=== PATIENT | male | born 1945 | race Caucasian/White ===

== ENCOUNTER 2020-09-01 08:49 | Outpatient (REF) | payer MEDICARE, SELFPAY ==
[2020-09-01 13:04] LABS: Estimated Average Glucose 128 mg/dL; Hemoglobin A1c % 6.1 %
== END 2020-09-01 08:50 | disposition home or self-care (01) ==
LOC: HO.MANLR 08:49
PROVIDERS: PCP Internal Medicine; Visit Provider Internal Medicine
DX: R73.01 Impaired fasting glucose (principal)
CPT/HCPCS: 36415; 83036

== ENCOUNTER 2020-12-22 07:40 | Outpatient (REF) | payer MEDICARE, SELFPAY ==
[2020-12-22 11:24] LABS: Estimated Average Glucose 128 mg/dL; Hemoglobin A1c % 6.1 %
[2020-12-22 11:57] LABS: Alanine Aminotransferase 68 U/L (0-40); Albumin Level 4.1 g/dL (3.5-5.0); Alkaline Phosphatase 54 U/L (39-117); Anion Gap 12 (12-20); Aspartate Amino Transferase 40 U/L (5-37); Bilirubin Total 0.5 mg/dL (0.0-1.0); Blood Urea Nitrogen 18 mg/dL (9-16); Calcium 9.1 mg/dL (8.4-10.2); Carbon Dioxide 30 mmol/L (22-29); Chloride 105 mmol/L (96-108); Cholesterol 192 mg/dL; Estimated Glomerular Filt Rate > 60; Glucose Fasting 154 mg/dL (60-99); HDL Cholesterol 42 mg/dL; LDL Cholesterol Calculated 115 mg/dl; Potassium 4.7 mmol/L (3.3-5.1); Sodium 142 mmol/L (135-145); Total Protein 6.1 g/dL (6.5-8.0); Triglycerides 178 mg/dL
[2020-12-22 12:15] LABS: Prostate Specific Antigen < 0.05 ng/mL (<0.05-4.0)
[2020-12-22 18:09] LABS: Hematocrit 46.3 % (42-52); Hemoglobin 14.8 g/dl (14.0-18.0); Mean Corpuscular Volume 100.2 fL (80-98); Mean Platelet Volume 11.4 fL (9.4-12.4); Platelet Count 219 X10*3/uL (160-400); Red Blood Count 4.62 X10*6/uL (4.60-5.80); Red Cell Distribution Width 12.7 % (11.0-16.0); White Blood Count 7.3 X10*3/uL (4.8-10.8)
== END 2020-12-22 07:41 | disposition home or self-care (01) ==
LOC: HO.MANLDS 07:40
PROVIDERS: PCP Internal Medicine; Visit Provider Internal Medicine
DX: Z12.5 Encounter for screening for malignant neoplasm of prostate (principal); E78.00 Pure hypercholesterolemia, unspecified
CPT/HCPCS: 36415; 80053; 80061; 83036; 84153; 85027

== ENCOUNTER 2021-03-23 07:33 | Outpatient (REF) | payer MEDICARE, SELFPAY ==
[2021-03-23 11:31] LABS: Estimated Average Glucose 137 mg/dL; Hemoglobin A1c % 6.4 %
== END 2021-03-23 07:34 | disposition home or self-care (01) ==
LOC: HO.MANLDS 07:33
PROVIDERS: PCP Internal Medicine; Visit Provider Internal Medicine
DX: R73.01 Impaired fasting glucose (principal)
CPT/HCPCS: 36415; 83036

== ENCOUNTER 2021-06-23 08:43 | Outpatient (REF) | payer MEDICARE, SELFPAY ==
[2021-06-23 11:06] LABS: Hematocrit 47.9 % (42-52); Hemoglobin 15.2 g/dl (14.0-18.0); Mean Corpuscular HGB Conc 31.7 g/dl (31.0-36.0); Mean Corpuscular Volume 97.6 fL (80-98); Mean Platelet Volume 11.4 fL (9.4-12.4); Platelet Count 224 X10*3/uL (160-400); Red Blood Count 4.91 X10*6/uL (4.60-5.80); Red Cell Distribution Width 13.2 % (11.0-16.0); White Blood Count 8.9 X10*3/uL (4.8-10.8)
[2021-06-23 11:15] LABS: Estimated Average Glucose 131 mg/dL; Hemoglobin A1c % 6.2 %
[2021-06-23 11:30] LABS: Alanine Aminotransferase 30 U/L (0-40); Albumin Level 4.3 g/dL (3.5-5.0); Alkaline Phosphatase 51 U/L (39-117); Anion Gap 11 (12-20); Aspartate Amino Transferase 27 U/L (5-37); Bilirubin Total 0.6 mg/dL (0.0-1.0); Blood Urea Nitrogen 15 mg/dL (9-16); Calcium 9.6 mg/dL (8.4-10.2); Carbon Dioxide 33 mmol/L (22-29); Chloride 104 mmol/L (96-108); Cholesterol 155 mg/dL; Estimated Glomerular Filt Rate > 60; Glucose Fasting 133 mg/dL (60-99); HDL Cholesterol 46 mg/dL; LDL Cholesterol Calculated 91 mg/dl; Potassium 4.9 mmol/L (3.3-5.1); Sodium 143 mmol/L (135-145); Total Protein 6.5 g/dL (6.5-8.0); Triglycerides 93 mg/dL
[2021-06-23 11:31] LABS: Creatinine Urine 97.11 mg/dL; Microalbum/Creatinine Ratio Ur 14.4 ug/mg cr
[2021-06-23 11:57] LABS: Prostate Specific Antigen < 0.05 ng/mL (<0.05-4.0)
== END 2021-06-23 08:44 | disposition home or self-care (01) ==
LOC: HO.MANLDS 08:43
PROVIDERS: PCP Internal Medicine; Visit Provider Internal Medicine
DX: E78.00 Pure hypercholesterolemia, unspecified (principal); R35.1 Nocturia; R73.01 Impaired fasting glucose
CPT/HCPCS: 36415; 80053; 80061; 82043; 83036; 84153; 85027

== ENCOUNTER 2021-09-22 07:34 | Outpatient (REF) | payer MEDICARE, SELFPAY ==
[2021-09-22 11:54] LABS: Estimated Average Glucose 140 mg/dL; Hemoglobin A1c % 6.5 %
== END 2021-09-22 07:35 | disposition home or self-care (01) ==
LOC: HO.MANLDS 07:34
PROVIDERS: PCP Internal Medicine; Visit Provider Internal Medicine
DX: R73.01 Impaired fasting glucose (principal)
CPT/HCPCS: 36415; 83036

== ENCOUNTER 2021-12-22 08:27 | Outpatient (REF) | payer MEDICARE, SELFPAY ==
[2021-12-22 11:42] LABS: Estimated Average Glucose 134 mg/dL; Hemoglobin A1c % 6.3 %
== END 2021-12-22 08:28 | disposition home or self-care (01) ==
LOC: HO.MANLDS 08:27
PROVIDERS: PCP Internal Medicine; Visit Provider Internal Medicine
DX: R73.01 Impaired fasting glucose (principal); I10 Essential (primary) hypertension; E78.00 Pure hypercholesterolemia, unspecified; Z12.5 Encounter for screening for malignant neoplasm of prostate
CPT/HCPCS: 36415; 83036

== ENCOUNTER 2022-03-23 07:32 | Outpatient (REF) | payer MEDICARE, SELFPAY ==
[2022-03-23 10:57] LABS: MANUAL DIFF FLAG NO
[2022-03-23 11:05] LABS: Basophils Absolute Auto 0.1 X10*3/uL (0.0-0.2); Basophils Percent Auto 0.8 % (0-2); Eosinophils Absolute Auto 0.2 X10*3/uL (0.0-0.4); Eosinophils Percent Auto 2.7 % (0-4); Hematocrit 45.7 % (42.0-52.0); Hemoglobin 14.9 g/dl (14.0-18.0); Imm Gran Abs Auto 0.02 X10*3/uL (0.00-0.03); Imm Gran Pct Auto 0.3 % (0.0-0.4); Lymphocytes Absolute Auto 3.1 X10*3/uL (1.2-4.9); Lymphocytes Percent Auto 39.8 % (20-40); Mean Corpuscular HGB Conc 32.6 g/dl (31.0-36.0); Mean Corpuscular Hemoglobin 31.8 pg (27.0-33.0); Mean Corpuscular Volume 97.6 fL (80.0-98.0); Mean Platelet Volume 11.4 fL (9.4-12.4); Monocytes Absolute Auto 0.6 X10*3/uL (0.1-1.2); Monocytes Percent Auto 7.9 % (2-11); Neutrophils Absolute Auto 3.8 x10*3/uL (2.0-8.3); Neutrophils Percent Auto 48.5 % (45-73); Platelet Count 212 X10*3/uL (160-400); Red Blood Count 4.68 X10*6/uL (4.60-5.80); Red Cell Distribution Width 12.9 % (11.0-16.0); White Blood Count 7.8 X10*3/uL (4.8-10.8)
[2022-03-23 11:34] LABS: Alanine Aminotransferase 26 U/L (0-40); Albumin Level 4.2 g/dL (3.5-5.0); Alkaline Phosphatase 49 U/L (39-117); Anion Gap 11 (12-20); Aspartate Amino Transferase 23 U/L (5-37); Bilirubin Total 0.4 mg/dL (0.0-1.0); Blood Urea Nitrogen 16 mg/dL (9-16); Calcium 8.8 mg/dL (8.4-10.2); Carbon Dioxide 30 mmol/L (22-29); Chloride 108 mmol/L (96-108); Estimated Glomerular Filt Rate > 60; Glucose Random 119 mg/dL (60-115); Potassium 4.4 mmol/L (3.3-5.1); Sodium 145 mmol/L (135-145); Total Protein 6.3 g/dL (6.5-8.0)
[2022-03-23 11:39] LABS: Creatinine Urine 63.94 mg/dL; Microalbumin Urine < 5.0 mg/L
[2022-03-23 11:45] LABS: Estimated Average Glucose 128 mg/dL; Hemoglobin A1c % 6.1 %
[2022-03-23 11:50] LABS: Prostate Specific Antigen < 0.05 ng/mL (<0.05-4.0)
== END 2022-03-23 07:33 | disposition home or self-care (01) ==
LOC: HO.MANLDS 07:32
PROVIDERS: Visit Provider Internal Medicine
DX: Z12.5 Encounter for screening for malignant neoplasm of prostate (principal); R73.01 Impaired fasting glucose
CPT/HCPCS: 36415; 80053; 82043; 83036; 84153; 85025

== ENCOUNTER 2022-06-23 09:56 | Outpatient (REF) | payer MEDICARE, SELFPAY ==
[2022-06-23 11:14] LABS: Estimated Average Glucose 128 mg/dL; Hemoglobin A1c % 6.1 %
== END 2022-06-23 09:57 | disposition home or self-care (01) ==
LOC: HO.MANLDS 09:56
PROVIDERS: Visit Provider Internal Medicine
DX: R73.01 Impaired fasting glucose (principal)
CPT/HCPCS: 36415; 83036

== ENCOUNTER 2022-12-22 07:41 | Outpatient (REF) | payer MEDICARE, SELFPAY ==
[2022-12-22 11:54] LABS: Estimated Average Glucose 126 mg/dL
== END 2022-12-22 07:42 | disposition home or self-care (01) ==
LOC: HO.MANLDS 07:41
PROVIDERS: Visit Provider Internal Medicine
DX: R73.01 Impaired fasting glucose (principal)
CPT/HCPCS: 36415; 83036

== ENCOUNTER 2023-03-22 07:30 | Outpatient (REF) | payer MEDICARE, SELFPAY ==
[2023-03-22 13:41] LABS: Estimated Average Glucose 117 mg/dL; Hemoglobin A1c % 5.7 %
[2023-03-22 14:14] LABS: Creatinine Urine 54.39 mg/dL; Microalbumin Urine < 5.0 mg/L
[2023-03-22 14:23] LABS: Alanine Aminotransferase 26 U/L (0-40); Albumin Level 4.3 g/dL (3.5-5.0); Alkaline Phosphatase 51 U/L (39-117); Anion Gap 9 (12-20); Aspartate Amino Transferase 25 U/L (5-37); Bilirubin Total 0.3 mg/dL (0.0-1.0); Blood Urea Nitrogen 20 mg/dL (9-16); Calcium 9.2 mg/dL (8.4-10.2); Carbon Dioxide 33 mmol/L (22-29); Chloride 105 mmol/L (96-108); Cholesterol 177 mg/dL; Estimated Glomerular Filt Rate > 60; Glucose Random 116 mg/dL (60-115); HDL Cholesterol 50 mg/dL; LDL Cholesterol Calculated 98 mg/dl; Potassium 4.4 mmol/L (3.3-5.1); Sodium 143 mmol/L (135-145); Total Protein 6.7 g/dL (6.5-8.0); Triglycerides 147 mg/dL
[2023-03-22 14:50] LABS: Prostate Specific Antigen < 0.10 ng/mL (<0.05-4.0)
== END 2023-03-22 07:31 | disposition home or self-care (01) ==
LOC: HO.MANLDS 07:30
PROVIDERS: Visit Provider Internal Medicine
DX: Z12.5 Encounter for screening for malignant neoplasm of prostate (principal); I25.9 Chronic ischemic heart disease, unspecified; R73.01 Impaired fasting glucose
CPT/HCPCS: 36415; 80053; 80061; 82043; 83036; 84153

== ENCOUNTER 2023-06-24 07:38 | Outpatient (REF) | payer MEDICARE, SELFPAY ==
[2023-06-24 13:28] LABS: Estimated Average Glucose 126 mg/dL
== END 2023-06-24 07:39 | disposition home or self-care (01) ==
LOC: HO.MANLDS 07:38
PROVIDERS: Visit Provider Internal Medicine
DX: R73.01 Impaired fasting glucose (principal)
CPT/HCPCS: 36415; 83036

== ENCOUNTER 2023-08-26 07:26 | Outpatient (REF) | payer MEDICARE, SELFPAY ==
[2023-08-26 13:26] LABS: MANUAL DIFF FLAG NO
[2023-08-26 13:43] LABS: Basophils Absolute Auto 0.1 X10*3/uL (0.0-0.2); Basophils Percent Auto 0.8 % (0-2); Eosinophils Absolute Auto 0.1 X10*3/uL (0.0-0.4); Eosinophils Percent Auto 1.2 % (0-4); Hematocrit 42.8 % (42.0-52.0); Hemoglobin 13.5 g/dl (14.0-18.0); Imm Gran Abs Auto 0.03 X10*3/uL (0.00-0.03); Imm Gran Pct Auto 0.5 % (0.0-0.4); Lymphocytes Absolute Auto 2.9 X10*3/uL (1.2-4.9); Lymphocytes Percent Auto 45.1 % (20-40); Mean Corpuscular HGB Conc 31.5 g/dl (31.0-36.0); Mean Corpuscular Hemoglobin 31.5 pg (27.0-33.0); Mean Corpuscular Volume 99.8 fL (80.0-98.0); Mean Platelet Volume 10.1 fL (9.4-12.4); Monocytes Absolute Auto 0.6 X10*3/uL (0.1-1.2); Monocytes Percent Auto 9.7 % (2-11); Neutrophils Absolute Auto 2.8 x10*3/uL (2.0-8.3); Neutrophils Percent Auto 42.7 % (45-73); Platelet Count 355 X10*3/uL (160-400); Red Blood Count 4.29 X10*6/uL (4.60-5.80); Red Cell Distribution Width 13.7 % (11.0-16.0); White Blood Count 6.5 X10*3/uL (4.8-10.8)
[2023-08-26 13:54] LABS: Estimated Average Glucose 131 mg/dL; Hemoglobin A1c % 6.2 % (<6.0)
[2023-08-26 14:11] LABS: Alanine Aminotransferase 38 U/L (0-40); Albumin Level 3.4 g/dL (3.5-5.0); Alkaline Phosphatase 43 U/L (39-117); Anion Gap 11 (12-20); Aspartate Amino Transferase 42 U/L (5-37); Bilirubin Total 0.5 mg/dL (0.0-1.0); Blood Urea Nitrogen 13 mg/dL (9-16); Calcium 8.6 mg/dL (8.4-10.2); Carbon Dioxide 28 mmol/L (22-29); Chloride 107 mmol/L (96-108); Cholesterol 139 mg/dL (<200); Estimated Glomerular Filt Rate > 60; Glucose Random 106 mg/dL (60-115); HDL Cholesterol 37 mg/dL (>40); LDL Cholesterol Calculated 78 mg/dL (<100); Potassium 4.3 mmol/L (3.3-5.1); Sodium 142 mmol/L (135-145); Total Protein 6.1 g/dL (6.5-8.0); Triglycerides 122 mg/dL (<150)
[2023-08-26 14:16] LABS: Thyroid Stimulating Hormone 2.79 uIU/mL (0.32-4.0)
== END 2023-08-26 07:27 | disposition home or self-care (01) ==
LOC: HO.MANLDS 07:26
PROVIDERS: Visit Provider Internal Medicine
DX: I25.9 Chronic ischemic heart disease, unspecified (principal)
CPT/HCPCS: 36415; 80053; 80061; 83036; 84443; 85025

== ENCOUNTER 2023-11-23 09:09 | Outpatient (REF) | payer MEDICARE, SELFPAY ==
[2023-11-23 14:04] LABS: Estimated Average Glucose 128 mg/dL; Hemoglobin A1c % 6.1 % (<6.0)
== END 2023-11-23 09:10 | disposition home or self-care (01) ==
LOC: HO.MANLDS 09:09
PROVIDERS: Visit Provider Internal Medicine
DX: R73.01 Impaired fasting glucose (principal)
CPT/HCPCS: 36415; 83036

== ENCOUNTER 2024-02-24 08:31 | Outpatient (REF) | payer MEDICARE, SELFPAY ==
[2024-02-24 14:00] LABS: Estimated Average Glucose 131 mg/dL; Hemoglobin A1c % 6.2 % (<6.0)
== END 2024-02-24 08:32 | disposition home or self-care (01) ==
LOC: HO.MANLDS 08:31
PROVIDERS: Visit Provider Internal Medicine
DX: R73.01 Impaired fasting glucose (principal)
CPT/HCPCS: 36415; 83036

== ENCOUNTER 2024-05-28 10:25 | Outpatient (REF) | payer MEDICARE, SELFPAY ==
[2024-05-28 13:40] LABS: Estimated Average Glucose 126 mg/dL; Total Hemoglobin (HGBA1C) 3833.4525 umol/L
== END 2024-05-28 10:26 | disposition home or self-care (01) ==
LOC: HO.MANLDS 10:25
PROVIDERS: Visit Provider Internal Medicine
DX: R73.01 Impaired fasting glucose (principal)
CPT/HCPCS: 36415; 83036

== ENCOUNTER 2024-11-21 07:31 | Outpatient (REF) | payer MEDICARE, SELFPAY ==
[2024-11-21 13:42] LABS: Estimated Average Glucose 137 mg/dL; Hemoglobin A1c % 6.4 % (<6.0); Total Hemoglobin (HGBA1C) 3920.5602 umol/L
== END 2024-11-21 07:32 | disposition home or self-care (01) ==
LOC: HO.MANLDS 07:31
PROVIDERS: Visit Provider Internal Medicine
DX: R73.01 Impaired fasting glucose (principal)
CPT/HCPCS: 36415; 83036

== ENCOUNTER 2025-02-26 07:30 | Outpatient (REF) | payer MEDICARE, SELFPAY ==
--- OUTSIDE RECORDS SUMMARY | 2025-02-26 07:32 | XMS_ITS | Data Portability ---
Author Organization [facility], Telehealth Patient Home Address [address] [place] [address] Assessment Encounter Date Assessment Date Assessment LastModified by Organization Details LastModified Time 01/17/2024 01/17/2024 [id number] [place] [id number] (DEPARTMENT SALES MANAGER) [facility] MODERATE MUST MEET 2 OUT OF 3 ELEMENTS: PROBLEMS, DATA OR RISK ELEMENT 1: PROBLEMS ADDRESSED 1 OR MORE CHRONIC ILLNESS WITH EXACERBATION OR 2 OR MORE STABLE CHRONIC ILLNESSES OR 1 UNDIAGNOSED NEW PROBLEM OR 1 ACUTE ILLNESS W/SYMPTOMS OR 1 ACUTE COMPLICATED INJURY ELEMENT 2: DATA MUST MEET 1 OF 3 CATEGORIES CATEGORY 1: REVIEW OF PRIOR EXTERNAL NOTES, REVIEW OF RESULTS, ORDERING OF EACH TEST, ASSESSMENT REQUIRING INDEPENDENT HISTORIAN OR CATEGORY 2: INDEPENDENT INTERPRETATION OF TESTS BY ANOTHER PHYSICIAN OR SPECIALIST OR CATEGORY 3: DISCUSSION OF MGT OR TEST INTERPRETATION W/EXTERNAL PHYSICIAN OR SPECIALIST ELEMENT 3: RISK RISK OF COMPLICATIONS AND/OR MORBIDITY OR MORTALITY OF PATIENT MANAGEMENT PROVIDER MUST THOROUGHLY DOCUMENT EACH ELEMENT THAT IS COVERED Not available 01/17/2024 15:39:57 03/21/2024 03/21/2024 [id number] [place] [id number] (DEPARTMENT SALES MANAGER) [facility] MODERATE MUST MEET 2 OUT OF 3 ELEMENTS: PROBLEMS, DATA OR RISK ELEMENT 1: PROBLEMS ADDRESSED 1 OR MORE CHRONIC ILLNESS WITH EXACERBATION OR 2 OR MORE STABLE CHRONIC ILLNESSES OR 1 UNDIAGNOSED NEW PROBLEM OR 1 ACUTE ILLNESS W/SYMPTOMS OR 1 ACUTE COMPLICATED INJURY ELEMENT 2: DATA MUST MEET 1 OF 3 CATEGORIES CATEGORY 1: REVIEW OF PRIOR EXTERNAL NOTES, REVIEW OF RESULTS, ORDERING OF EACH TEST, ASSESSMENT REQUIRING INDEPENDENT HISTORIAN OR CATEGORY 2: INDEPENDENT INTERPRETATION OF TESTS BY ANOTHER PHYSICIAN OR SPECIALIST OR CATEGORY 3: DISCUSSION OF MGT OR TEST INTERPRETATION W/EXTERNAL PHYSICIAN OR SPECIALIST ELEMENT 3: RISK RISK OF COMPLICATIONS AND/OR MORBIDITY OR MORTALITY OF PATIENT MANAGEMENT PROVIDER MUST THOROUGHLY DOCUMENT EACH ELEMENT THAT IS COVERED Not available 03/21/2024 14:01:11 09/21/2024 09/21/2024 [id number] [place] [id number] (DEPARTMENT SALES MANAGER) MDM HIGH MUST MEET 2 OUT OF 3 ELEMENTS: PROBLEMS, DATA OR RISK ELEMENT 1: PROBLEMS 1 OR MORE CHRONIC ILLNESS W/SEVERE EXACERBATION, PROGRESSION MAY REQUIRE HOSPITAL LEVEL CARE OR 1 ACUTE OR CHRONIC ILLNESS OR INJURY THAT POSES A THREAT TO LIFE OR BODILY FUNCTION ELEMENT 2: DATA: MUST MEET 2 OF 3 CATEGORIES CATEGORY 1 REVIEW OF PRIOR EXTERNAL NOTES REVIEW OF THE RESULTS ORDERING OF EACH TEST ASSESSMENT REQUIRING INDEPENDENT HISTORIAN(S) CATEGORY 2: INDEPENDENT INTERPRETATION OF TESTS BY ANOTHER PROVIDER/SPECIALI ST CATEGORY 3: DISCUSSION OF MGT OR TEST INTERPRETATION W/EXTERNAL PHYSICIAN/SPECIAL IST ELEMENT 3: RISK HIGH RISK OF MORBIDITY FROM ADDITIONAL DIAGNOSTIC TESTING OR TREATMENT PROVIDER MUST THOROUGHLY DOCUMENT EACH ELEMENT THAT IS COVERED Not available 09/21/2024 11:02:44 Plan of Treatment Reminders Order Date Submit Date Provider Last Modified By Organization Details Last Modified Time Details Appointments FOLLOW UP 15 2024 02:00P M DR REYES Not available Not available Not available Lab lipid panel, blood 2024 025 [facility], [address] [place] [address], [id number], 12/03/2024 15:53:12 CMP, serum or plasma 2024 025 [facility], [address] [place] [address], [id number], 12/03/2024 15:53:12 PSA, serum or plasma 2024 025 [facility], [address] [place] [address], [id number], 12/03/2024 15:53:12 CBC 2024 025 [facility], [address] [place] [address], [id number], 12/03/2024 15:53:12 hemoglobi n A1c, QN, blood 2024 025 [facility], [address] [place] [address], [id number], 11/22/2024 12:48:27 hemoglobi n A1c, QN, blood 2024 025 [facility], [address] [place] [address], [id number], 12/03/2024 15:42:37 CMP, serum or plasma 2023 024 [facility], [address] [place] [address], [id number], 06/26/2024 14:04:28 CBC w/ auto diff 2023 024 [facility], [address] [place] [address], [id number], 08/24/2024 12:37:15 PSA, serum or plasma 2023 024 [facility], [address] [place] [address], [id number], 08/24/2024 13:15:27 lipid panel, blood 2023 024 [facility], [address] [place] [address], [id number], 08/24/2024 13:02:27 Referral orthopedi c surgeon referral 2023 024 sb Sanchez MD, [address] [place] [address], [id number], 01/20/2024 08:21:40 Procedures None recorded. Surgeries None recorded. Imaging US, echocardi ogram, transthor acic, complete, w/ color flow 2024 [facility]25 [facility], [address] [place], [address], 10/05/2024 09:02:24 Medication Orders losartan 25 mg tablet 2024 025 [id number], [address] [place], [address], 12/03/2024 15:51:57 Patient TargetsNo targets recorded. Patient Instructions Encounter Date Encounter Id Patient Instructions Last Modified By Organization Details Last Modified Time 03/21/2024 [id number] prediabetes: car e instructions Not available 03/21/2024 14:03:15 thoracic aortic aneurysm: care instructions Not available 03/21/2024 14:03:15 insomnia: care instructions Not available 03/21/2024 14:08:15 high blood pressure: care instructions Not available 03/21/2024 14:03:16 learning about high blood pressure Not available 03/21/2024 14:03:15 06/26/2024 [id number] prediabetes: car e instructions Not available 06/26/2024 14:03:10 lumbar spinal stenosis: care instructions Not available 06/26/2024 14:03:10 insomnia: care instructions Not available 06/26/2024 14:03:10 09/21/2024 [id number] prediabetes: car e instructions Not available 09/21/2024 11:07:30 thoracic aortic aneurysm: care instructions Not available 09/21/2024 11:01:57 Reason for Referral Orthopedic Surgeon Referral for Pain of right hip joint Referring Physician: Lincoln Reyes, Internal Medicine, Encounter Date: 01/17/2024 Results Created Date Observation Date Name Description Value Unit Range Abnormal Flag Note LastModifiedBy Organization Detail LastModifiedTime 10/10/19 25 10/09/2024 cardi ovasc ular funct ion evalu ation w/ tilt table , aric nuous ECG and inter mitte nt blood press ure monit oring No observ ation record ed. [facility] [address], [place], [address], 12/03/2024 15:42:37 11/14/19 25 11/13/2024 US, echoc ardio gram, trans thora cic, compl ete, w/ color flow No observ ation record ed. [facility] [address] [facility], [place], [address], 12/03/2024 15:42:37 Result Notes None recorded. Problems Name Problem SNOMED Code Status Onset Date Resolution Date Notes Provider Name and Address Organization Details Recorded Time Axillary hidraden itis suppurat francisca 222525717 Active 2018 [facility] 11:05:36 Radical prostate ctomy Active 2020 Lincoln Reyes, [address] [place] [address], [phone], [facility] 10:03:22 Myocardi al infarcti on 07312430 Completed 202004/14/2021 Lincoln Reyes DO [address] [place] [address], [phone], [facility] 10:05:23 Steatoti c liver disease 497235891 Active 2022 [facility] 11:05:36 Nodule of lung 898966756 Active 2022 [facility] 5 11:05:36 Divertic ulosis of colon 302526452 Active 2022 Salud wadsworth [facility] 5 11:05:36 Aneurysm of thoracic aorta 506084043 Active 2022 [facility] 11:05:36 Ischemic heart disease 906364440 Completed 202212/03/2024 Lincoln Reyes DO [address] [place] [address], [phone], [facility] 5 15:49:55 Diarrhea 32605200 Active 2022 [facility] 11:05:43 Left foot drop 53286274888 9105 Active 2022 [facility] 5 11:05:36 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 [facility] 11:05:36 Spinal stenosis of lumbar region 19893230 Active 2023 [facility] 5 11:05:36 Acute sciatica 523952467 Active 2023 [facility] 5 11:05:43 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 2237986575 Active 2023 [facility] 11:05:35 Eczema 62742341 Active 2023 [facility] 5 11:05:36 Insomnia 582414312 Active 2023 [facility] 5 11:05:35 Pain of right hip joint 21908108635 9102 Active 2023 [facility] 5 11:05:43 Infectio n of sebaceou s cyst 991295911 Active 2024 [facility] 5 11:05:43 Essentia l hyperten carlos 81567949 Active 2017 [facility] 5 11:05:36 Hypercho lesterol emia 28737888 Active 2017 [facility] 5 11:05:36 Impaired fasting glycemia 194809240 Active 2017 [facility] 5 11:05:36 Injury of brachial plexus 2062795 Active 2017 [facility] 5 11:05:43 History of depressi on 142894443 Active 2017 Salud Juan Antonio wadsworth [facility] 5 11:05:36 Anxiety 94855867 Active 2017 Salud Juan Antonio ananth [facility] 5 11:05:36 Notes:1991 and given tPA Problem Notes None recorded. Procedures Surgical History Date Name Laterality Status Provider Name and Address Organization Details Recorded Time 8 Colonoscopy completed Ainsley Christianson [facility] 06/21/2018 08:44:33 Imaging Results None recorded. Procedure Notes None recorded. Medical Equipment None Reported. Allergies No known drug allergies Medications Name Sig Start Date Stop Date Status Note LastModified by Organization Details LastModified Time desonide 0.05 % topical cream APPLY SPARINGL Y AND RUB GENTLY INTO THE AFFECTED AREA(S) BY TOPICAL ROUTE 2 TIMES PER DAY 01/15 completed Not Available Not Available Not Available prednisone 10 mg tablet TAKE 4 TABLETS BY MOUTH FOR 2 DAYS THEN 3 TABLETS FOR 2 DAYS THEN THEN 2 TABLETS FOR 2 DAYS THEN 1 TABLET FOR 2 DAYS 11/21 completed Not Available Not Available Not Available doxycyclin e hyclate 100 mg capsule Take 1 capsule twice a day by oral route for 21 days. 03/06 completed Not Available Not Available Not Available loperamide 2 mg capsule TAKE ONE CAPSULE BY MOUTH FOUR TIMES A DAY NEEDED 11/21 completed Not Available Not Available Not Available trazodone 50 mg tablet TAKE ONE TABLET BY MOUTH EVERY DAY 01/16 completed Not Available Not Available Not Available metoprolol tartrate 100 mg tablet Take by oral route. 06/12 completed Take 1/2 tablet twice a day. Not Available Not Available Not Available Keflex 500 mg capsule Take 1 capsule 4 times a day by oral route for 10 days. 09/13 completed Not Available Not Available Not Available meloxicam 15 mg tablet TAKE ONE TABLET BY MOUTH EVERY DAY NEEDED 11/21 completed Not Available Not Available Not Available lovastatin 40 mg tablet TAKE ONE TABLET BY MOUTH EVERY DAY 08/10 completed Not Available Not Available Not Available metronidaz ole 500 mg tablet TAKE ONE TABLET BY MOUTH TWICE A DAY WITH MEAL FOR 7 DAYS 11/21 completed Not Available Not Available Not Available citalopram 20 mg tablet TAKE ONE AND A HALF TABLETS BY MOUTH ONCE DAILY active Not Available Not Available No t Available trazodone 100 mg tablet TAKE ONE TABLET BY MOUTH EVERY DAY 06/26 completed Not Available Not Available Not Available losartan 25 mg tablet TAKE ONE TABLET BY MOUTH EVERY DAY active Not Available Not Available No t Available metoprolol tartrate 50 mg tablet TAKE ONE-HALF TABLET BY MOUTH TWICE A DAY active Not Available Not Available No t Available diclofenac sodium 75 mg tablet,del ayed release TAKE ONE TABLET BY MOUTH TWICE A DAY 04/14 completed Not Available Not Available Not Available lorazepam 1 mg tablet TAKE 1 TABLET BY MOUTH 30MIN BEFORE MRI 11/21 completed Not Available Not Available Not Available doxycyclin e hyclate 100 mg tablet Take 1 tablet twice a day by oral route for 10 days. 10/10 completed Not Available Not Available Not Available clindamyci n phosphate 1 % topical solution APPLY A THIN LAYER TO THE AFFECTED AREA(S) BY TOPICAL ROUTE 2 TIMES PER DAY 01/15 completed Not Available Not Available Not Available ezetimibe 10 mg tablet TAKE 1 TABLET BY MOUTH DAILY 11/21 completed Not Available Not Available Not Available rosuvastat in 20 mg tablet TAKE ONE TABLET BY MOUTH EVERY DAY 08/19 completed Not Available Not Available Not Available rosuvastat in 40 mg tablet TAKE ONE TABLET BY MOUTH EVERY DAY active Not Available Not Available No t Available Boostrix Tdap 2.5 Lf unit-8 mcg-5 Lf/0.5 mL intramuscu lar syringe INJECT 0.5 ML INTRAMUS CULARLY ONCE 04/01 completed Not Available Not Available Not Available aspirin Take 81mg once a day. active Not Available Not Available No t Available Fluad Quad [id number]( 65yr up)(PF) 60 mcg (15 mcg x 4)/0.5mL IM syringe VACCINAT ION ADMINIST ERED BY PHARMACI ST 04/01 completed Not Available Not Available Not Available Arthritis Pain (diclofena c) 1 % topical gel USE 1-3 GRAMS AND APPLY TO AFFECTED AREA 3-4 TIMES PER DAY active Not Available Not Available No t Available Vitals Date Recorded Body height Body mass index (BMI) Body weight Heart rate Oxygen saturation Oxygen saturation in Arterial blood by Pulse oximetry Systolic blood pressure Diastolic blood pressure Provider Name and Address Organization Details Last Updated DateTime 5 179.07 cm 27.6 kg/m2 06279.5 1 g 87 /min 97 % 97 % 138 mm[Hg] 80 mm[Hg] Teri Garza [facility] 5 10:43:13 Date Recorded Body height Body mass index (BMI) Body weight Heart rate Oxygen saturation Oxygen saturation in Arterial blood by Pulse oximetry Systolic blood pressure Diastolic blood pressure Provider Name and Address Organization Details Last Updated DateTime 5 179.07 cm 27.4 kg/m2 77881.9 2 g 54 /min 97 % 97 % 132 mm[Hg] 80 mm[Hg] Teri Garza [facility] 5 15:25:12 Date Recorded Body height Body mass index (BMI) Body weight Heart rate Respiratory rate Oxygen saturation Oxygen saturation in Arterial blood by Pulse oximetry Systolic blood pressure Diastolic blood pressure Provider Name and Address Organization Details Last Updated DateTime 4 179.07 cm 26.2 kg/m2 27999.3 8 g 66 /min 16 /min 94 % 94 % 128 mm[Hg] 80 mm[Hg] Reid White [facility] 4 15:19:25 Date Recorded Body height Body mass index (BMI) Body weight Heart rate Oxygen saturation Oxygen saturation in Arterial blood by Pulse oximetry Systolic blood pressure Diastolic blood pressure Provider Name and Address Organization Details Last Updated DateTime 4 179.07 cm 26.2 kg/m2 44180.5 9 g 47 /min 96 % 96 % 140 mm[Hg] 80 mm[Hg] [facility] 4 13:50:13 Date Recorded Body height Body mass index (BMI) Body weight Heart rate Oxygen saturation Oxygen saturation in Arterial blood by Pulse oximetry Systolic blood pressure Diastolic blood pressure Provider Name and Address Organization Details Last Updated DateTime 4 179.07 cm 27 kg/m2 80766.1 4 g 51 /min 97 % 97 % 136 mm[Hg] 82 mm[Hg] Reid White [facility] 4 13:38:15 Social History Question Answer Notes LastModified by Organizat ion Details LastModified Time Tobacco Smoking Status Former Smoker Quit 30+ years Ago Reid wadsworth, [facility] 01/17/2024 15:20:39 What Was The Date Of Your Most Recent Tobacco Screening? 12/03/2024 [email or web address] Information not available 12/03/2024 Sex: Unknown Functional Status Question Answer Note LastModified by Organization D etails LastModified Time Do you or have you ever used any other forms of tobacco or nicotine? No Information not available 01/15/2022 Mental Status None recorded. Family History Nothing Reported. Medical History No medical history recorded. Immunizations Vaccine Type Date Status Note Provider Nam e and Address Organization Details Recorded Time COVID-19, mRNA, LNP-S, PF, 100 mcg/0.5mL dose or 50 mcg/0.25mL dose 12/06/19 21 completed Not Available [facility] 09/09/2023 14:34:29 Pneumococcal conjugate PCV 13 06/10/20 16 completed Not Available [facility]/09/2023 14:34:29 Pneumococcal conjugate PCV20, polysaccharide [id number] conjugate, adjuvant, PF 03/09/20 22 completed Not Available [facility] 09/09/2023 14:34:29 influenza, unspecified formulation 06/26/20 22 completed Not Available [facility] 09/09/2023 14:34:29 Influenza, split virus, quadrivalent, preservative 06/22/20 18 completed Not Available [facility] 09/09/2023 14:34:29 influenza, unspecified formulation 06/05/20 24 completed Lincoln Reyes, DO [address] [facility], [place], [address], [facility] 06/26/2024 13:52:08 Influenza, split virus, quadrivalent, preservative 06/04/20 19 completed Not Available [facility] 09/09/2023 14:34:29 Tdap 11/30/19 20 completed Not Available [facility] 09/09/2023 14:34:29 Influenza, split virus, quadrivalent, preservative 04/25/20 20 completed Not Available [facility] 09/09/2023 14:34:28 Influenza, split virus, quadrivalent, preservative 04/25/20 20 completed Not Available [facility] 09/09/2023 14:34:29 COVID-19, mRNA, LNP-S, PF, 100 mcg/0.5mL dose or 50 mcg/0.25mL dose 01/03/20 21 completed Not Available [facility] 09/09/2023 14:34:29 Past Encounters Encounter ID Performer Location Encounter Start Date Encounter Closed Date Diagnosis/Indication Diagnosis SNOMED-CT Code Diagnosis ICD10 Code Diagnosis Note [id number] Lincoln Reyes [facility] [address] [facility] [address] [address] 12/05/2017 13:38:24 12/05/2017 15:56:48 History of depression 830826319 Z86.59 feeling better on 30mg Impaired f asting glycemia 222672390 R73.01 lab work now reviewed reveals A1c of 5.7 doing well eating better careful w exercise has lab standing order Essential hypertension 12418048 I10 bp sl low Hypercholesterolemia 136 50777 E78.00 reviewed latest lab from last week doing great with low ldl and low trigh hdl is in 40's discussed diet and need exercise daily [id number] Lincoln Reyes [facility] [address] [facility],[place] [employer] [place] [address] 03/27/2018 14:35:15 03/27/2018 15:18:33 Impaired fasting glycemia 884004045 R73.01 lab work now reviewed reveals A1c of 5.7 doing well eating better careful w exercise has lab standing order Anxiety 49250810 F41.9 overall is doing ok and is doing a bit better Essential hypertension 38440146 I10 doing great and is ok for now Hypercholesterolemia 136 82799 E78.00 reviewed latest lab from last week doing great with low ldl and low trigh hdl is in 40's discussed diet and need exercise daily [id number] Lincoln Reyes [facility] [address] [facility] [address] [address] 06/12/2018 11:30:12 06/12/2018 12:30:46 Impaired fasting glycemia 377056385 R73.01 lab work now reviewed reveals A1c of 5.7 doing well eating better careful w exercise has lab standing order Essential hypertension 66337254 I10 doing great and is ok for now will cont with metoprolol at 1/2 tab bid Anxiety 99435788 F41.9 overall is doing ok and is doing a bit better since passed and is still in mourning at times Hypercholesterolemia 136 61237 E78.00 reviewed latest lab from last week doing great with low ldl and low trigh hdl is in 40's discussed diet and need exercise daily [id number] Lincoln Reyes [facility] [address] [facility] [address] [address] 09/13/2018 10:39:42 09/13/2018 12:06:15 Impaired fasting glycemia 216449869 R73.01 lab work now reviewed reveals A1c of 5.7 doing well eating better careful w exercise has lab standing order Essential hypertension 61502713 I10 doing great and is ok for now will cont with metoprolol at 1/2 tab bid Abdominal aortic aneurysm screening 892620087 Z13.6 Cellulitis of upper limb 287422460 L03.119 failed keflex will change to doxy [id number] Lincoln Reyes [facility] [address] [facility] [address] 10/10/2018 11:17:58 10/10/2018 11:53:43 Axillary hidradenitis suppurativa 916047315 L73.2 [id number] Lincoln Reyes [facility] [address] [facility] [address] 11/15/2018 11:37:21 11/15/2018 12:51:03 Axillary hidradenitis suppurativa 161684092 L73.2 will restart doxy for 3 weeks as well as clindamyci n soultion 1% Essential hypertension 00345606 I10 doing great and is ok for now will cont with metoprolol at 1/2 tab bid [id number] Lincoln Reyes [facility] [address] [facility] [address] [address] 12/04/2018 13:30:14 12/04/2018 14:23:12 Essential hypertension 99276778 I10 doing great and is ok for now will cont with metoprolol at 1/2 tab bid Impaired f asting glycemia 053498506 R73.01 lab work now reviewed reveals A1c of 5.7 doing well eating better careful w exercise has lab standing order Axillary h idradenitis suppurativa 729884734 L73.2 will finish doxy total 3 weeks as well as clindamyci n soultion 1% Ganglion c yst of left hand 3470187722 04540 M67.442 will treat conserv for now if really starts to hurt we will refer for removal [id number] Lincoln Reyes [facility] [address] [facility] [employer] [place] [address] 03/06/2019 13:40:50 03/06/2019 14:37:35 Essential hypertension 88665238 I10 still doing great and is ok for now will cont with metoprolol at 1/2 tab bid History of depression 16 0597762 Z86.59 continues to feel better on 30mg Hypercholesterolemia 136 63435 E78.00 reviewed latest lab from last week doing great with low ldl and low trig hdl is in 40's discussed diet and need exercise daily Impaired f asting glycemia 821280779 R73.01 lab work now reviewed reveals A1c of 5.7 doing well eating better careful w exercise has lab standing order Axillary h idradenitis suppurativa 915242631 L73.2 has done ok over the last several months and is using the clinda bottle with good results Eczema 97052388 L30.9 has evid of pelling eczema type lesions [id number] Lincoln Reyes [facility] [address] [facility], [facility] [place] [address] 06/19/2019 13:16:42 06/19/2019 13:48:15 Essential hypertension 19827342 I10 still doing great and is ok for now will cont with metoprolol at 1/2 tab bid Impaired f asting glycemia 756212580 R73.01 lab work now reviewed reveals A1c of 5.7 doing well eating better careful w exercise has lab standing order Hypercholesterolemia 136 82419 E78.00 reviewed latest lab from last week doing great with low ldl at 130 and low trig hdl is in 40's discussed diet and need exercise daily Active or passive immunization 181938255 Z23 [facility] tdap shingles pneumovax Hepatitis C screening 41 4642191 Z11.59 will get next visit [id number] Lincoln Reyes DO [facility] [address] [facility] [address],[place] [employer] [facility] [address] 09/11/2019 13:19:37 09/11/2019 13:56:23 Essential hypertension 79449668 I10 still doing great and is ok for now will cont with metoprolol at 1/2 tab bid Anxiety 11101483 F41.9 overall is doing ok and is doing a bit better since passed and is still in mourning at times Impaired f asting glycemia 156787501 R73.01 lab work now reviewed reveals A1c of 5.7 doing well eating better careful w exercise has lab standing order Hypercholesterolemia 136 55231 E78.00 reviewed latest lab from last week doing great with low ldl at 130 and low trig hdl is in 40's discussed diet and need exercise daily Pain of le ft hip joint [id number] 97515 M25.552 xr first will get both to compare [id number] Lincoln Reyes DO [facility] [address] [facility],[place] Team [facility] [address] 09/26/2019 08:51:49 09/26/2019 09:24:04 Trochanteric bursitis of left hip [id number] 58006 M70.62 pt requests eval by dr sweet will refer Impaired f asting glycemia 430542308 R73.01 lab work now reviewed reveals A1c of 5.7 doing well eating better careful w exercise has lab standing order Hypercholesterolemia 136 02707 E78.00 reviewed latest lab from last week doing great with low ldl at 130 and low trig hdl is in 40's discussed diet and need exercise daily Essential hypertension 64006038 I10 still doing great and is ok for now will cont with metoprolol at 1/2 tab bid [id number] Lincoln Reyes DO [facility] [address] [facility] [address],[place] Team [facility] [address] 11/30/2019 10:16:13 11/30/2019 11:30:05 Essential hypertension 19130454 I10 still doing great and is ok for now will cont with metoprolol at 1/2 tab bid Impaired f asting glycemia 018458462 R73.01 lab work now reviewed reveals A1c of 5.7 doing well eating better careful w exercise has lab standing order Active or passive immunization 496226219 Z23 recc tdap shingles pneumovax 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 [id number] Lincoln Reyes DO [facility] [address] [facility] [address],[place] [address] 12/14/2019 11:18:07 12/14/2019 11:59:08 Iliotibial band friction syndrome 476413255 M76.31 cont meds and will try doing some of the stretching of the I T band [id number] Lincoln Reyes DO [facility] [address] [facility] [address],[place] [address] 03/18/2020 13:31:34 03/18/2020 13:52:04 Essential hypertension 56954211 I10 still doing great and is ok for now will cont with metoprolol at 1/2 tab bid Anxiety 71961021 F41.9 overall is doing ok and is doing a bit better since passed and is still in mourning at times but overall is doing ok Impaired f asting glycemia 853297807 R73.01 lab work now reviewed reveals A1c of 5.8 was 5.7 doing well eating better careful w exercise has lab standing order History of depression 16 0132931 Z86.59 continues to feel better on 30mg no changes needed Hypercholesterolemia 136 78955 E78.00 reviewed latest lab from last week doing great with low ldl at 130 and low trig hdl is in 40's discussed diet and exercise daily and we will rechk his lab in may Lincoln Reyes DO [facility] [address] [facility] [address],[place] [address] 06/20/2020 08:57:20 06/20/2020 09:41:37 Impaired fasting glycemia 410793612 R73.01 lab work now reviewed reveals A1c of 6.0 and prior was 5.8 was 5.7 doing well eating better careful w exercise has lab standing order Essential hypertension 78255496 I10 still doing great and is ok for now will cont with metoprolol at 1/2 tab bid [id number] Lincoln Reyes DO [facility] [address] [facility] [address],[place] [employer] Maur[place] [facility], [place] 7 09/24/2020 08:40:36 09/24/2020 10:40:35 Essential hypertension 19702403 I10 still doing great and is ok for now relates has gained about 5 lbs since covid states has not been walking the past month before that was riding bike will cont with metoprolol at 1/2 tab bid bp at home has been good yesterday was 125/69- 64 Impaired f asting glycemia 703962814 R73.01 lab work now reviewed reveals A1c of 6.1 and was 6.0 in late summer and prior was 5.8 was 5.7 doing well eating better careful w exercise has lab standing order Hypercholesterolemia 136 13603 E78.00 reviewed latest lab from last visit doing great with low ldl at 130 and low trig hdl is in 40's discussed diet and exercise daily and we will rechk his lab in the spring Anxiety 97342690 F41.9 overall is doing ok and is doing a bit better since passed and is still in mourning at times but overall is doing ok still having a prob with sleep [id number] Lincoln Reyes DO [facility] [address] [facility] [address],[place] [employer] [facility] [place] 7 12/29/2020 08:14:11 12/29/2020 11:32:01 Impaired fasting glycemia 836653682 R73.01 lab work now reviewed reveals A1c of 6.1 and 6.1 and was 6.0 in late summer and prior was 5.8 was 5.7 doing well eating better careful w exercise has lab standing order Essential hypertension 24267646 I10 he still doing great and is ok for now relates has gained about 5 lbs since [facility] has not been walking the past month before that was riding bike will cont with metoprolol at 1/2 tab bid bp at home has been good yesterday was 125/69- 64 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 we will try to treat conserv initially will use diclof gel he has at home [id number] Lincoln Reyes [facility] [address] [facility] [address],[place] 7 04/01/2021 09:11:49 04/01/2021 10:34:24 Essential hypertension 43119490 I10 he still doing great and is ok for now relates has lost 5 lbs since last appt states has been walking the past month before that was riding bike will cont with metoprolol at 1/2 tab bid bp at home has been good yesterday was 125/69- 64 Impaired f asting glycemia 055635402 R73.01 lab work now reviewed reveals A1c of 6.4 and prior 6.1 and 6.1 and was 6.0 in late summer and prior was 5.8 was 5.7 doing well eating better careful w exercise has lab standing order Hypercholesterolemia 136 38600 E78.00 reviewed latest lab from last visit doing great with low ldl at 130 and low trig hdl is in 40's discussed diet and exercise daily and we will rechk his lab in the spring Nocturia 806821170 R35.1 [id number] Lincoln Reyes DO [facility] [address] [facility],[place] [address] 04/14/2021 09:45:17 04/14/2021 10:23:30 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.10 will be seeing cardiologi st but will change him over to rosuvastat in Aneurysm o f thoracic aorta 285460556 I71.2 we will have him see a cardiologi st as it has been years since last seen and dr storm was last dr Jerry lutz of lung 998715611 R91.1 for june please [id number] Lincoln Reyes DO [facility] [address] [facility],[address] [employer] [facility] [place] [address] 08/10/2021 08:25:11 08/10/2021 16:31:07 Essential hypertension 84863344 I10 he still doing great and is ok for now relates has lost 5 lbs since last appt states has been walking the past month before that was riding bike will cont with metoprolol at 1/2 tab bid bp at home has been good yesterday was 125/69- 64 Impaired f asting glycemia 362485903 R73.01 lab work now reviewed reveals A1c of 6.2 now 6.4 and prior 6.1 and 6.1 and was 6.0 in late summer and prior was 5.8 was 5.7 doing well eating better careful w exercise has lab standing order Hypercholesterolemia 136 32146 E78.00 reviewed latest lab from last visit doing great with low ldl at 93 and low trig at 93 hdl is in 46 discussed diet and exercise daily and we will rechk his lab in the spring [id number] Lincoln Reyes [facility] [address] [facility],[place] [address] 10/26/2021 14:59:58 10/27/2021 12:25:03 Impaired fasting glycemia 045923988 R73.01 lab work now reviewed reveals A1c of 6.5 this winter was 6.2 now 6.4 and prior 6.1 and 6.1 and was 6.0 in late summer and prior was 5.8 was 5.7 doing well eating better careful w exercise has lab standing order Hypercholesterolemia 136 89744 E78.00 reviewed latest lab from last visit doing great with low ldl at 93 and low trig at 93 hdl is in 46 discussed diet and exercise daily and we will rechk his lab in the spring Anxiety 13038123 F41.9 overall is doing ok and is doing a bit better since passed and is still in mourning at times but overall is doing ok still having a prob with sleep Essential hypertension 71677629 I10 he still doing great and is ok for now relates has lost 5 lbs since last appt states has been walking the past month before that was riding bike will cont with metoprolol at 1/2 tab bid bp at home has been good yesterday was 125/69- 64 Aneurysm o f thoracic aorta 544920033 I71.2 we will have him see a cardiologi st as it has been years [place] [id number] Lincoln Reyes [facility] [address] [facility],[place] [address] 01/15/2022 10:22:51 01/15/2022 14:22:02 Impaired fasting glycemia 352878694 R73.01 lab work now reviewed reveals A1c of 6.3 and was 6.5 this winter was 6.2 now 6.4 and prior 6.1 and 6.1 and was 6.0 in late summer and prior was 5.8 was 5.7 doing well eating better careful w exercise has lab standing order Essential hypertension 93673531 I10 he still doing great and is ok for now relates has lost 5 lbs since last appt states has been walking the past month before that was riding bike will cont with metoprolol at 1/2 tab bid bp at home has been good yesterday was 125/69- 64 Active or passive immunization 775010409 Z23 patient advised of vaccines that are due (pneu 23) [id number] Lincoln Reyes DO [facility] [address] [facility],[address] [employer] [facility] [address] 04/21/2022 09:54:37 04/21/2022 10:41:37 Impaired fasting glycemia 439709271 R73.01 lab work now reviewed reveals A1c of 6.1 and is doing great he was 6.3 and was 6.5 this winter was 6.2 now 6.4 and prior 6.1 and 6.1 and was 6.0 in late summer and prior was 5.8 was 5.7 doing well eating better careful w exercise has lab standing order Hypercholesterolemia 136 34083 E78.00 reviewed latest lab from last visit doing great with low ldl at 93 and low trig at 93 hdl is in 46 discussed diet and exercise daily and we will rechk his lab in the spring Essential hypertension 30134533 I10 he still doing great and is ok for now relates has lost 5 lbs since last appt states has been walking the past month before that was riding bike will cont with metoprolol at 1/2 tab bid bp at home has been good yesterday was 125/69- 64 Active or passive immunization 822584812 Z23 patient advised he is due for shingles & pneu 23 [id number] Lincoln Reyes DO [facility] [address] [facility] [address],[employer] [facility] [place] [place] [address] 07/16/2022 09:31:40 07/16/2022 12:40:33 Impaired fasting glycemia 181293225 R73.01 lab work now reviewed reveals A1c of 6.1 and is doing great he was 6.3 and was 6.5 this winter was 6.2 now 6.4 and prior 6.1 and 6.1 and was 6.0 in late summer and prior was 5.8 was 5.7 doing well eating better careful w exercise has lab standing order Hypercholesterolemia 136 10405 E78.00 lab from last visit doing great with low ldl at 93 and low trig at 93 hdl is in 46 discussed diet and exercise daily and we will rechk his lab in sep Essential hypertension 24268663 I10 bp here is sl elevated but i am not inclined to treat just one readingsta sunshine has been walking the past month before that was riding bike will cont with metoprolol at 1/2 tab bid tolerates bp at home has been good yesterday was 125/69- 64 Active or passive immunization 315562248 Z23 patient advised he is due for shingles & pneu 23 [id number] Lincoln Reyes [facility] [address] [facility],[place] [address] 10/19/2022 14:53:45 10/19/2022 16:21:22 Essential hypertension 19190931 I10 bp here is sl elevated but i am not inclined to treat just one readingsta sunshine has been walking the past month before that was riding bike will cont with metoprolol at 1/2 tab bid tolerates bp at home has been good yesterday was 125/69- 64 Hypercholesterolemia 136 03749 E78.00 lab from last visit doing great with low ldl at 93 and low trig at 93 hdl is in 46 discussed diet and exercise daily and we will rechk his lab in sep Impaired f asting glycemia 177247340 R73.01 lab work now reviewed reveals A1c of 6.2 was 6.1 and is doing great he was 6.3 and was 6.5 this winter was 6.2 now 6.4 and prior 6.1eating well and stays activehas lab standing order [id number] Lincoln Reyes [facility] [address] [facility],[place] [address] 01/12/2023 13:47:47 01/12/2023 15:17:26 Aneurysm of thoracic aorta 354601721 I71.20 will be seeing cardiac surgeon to rechk in next year 2024 Essential hypertension 51763327 I10 bp here is sl elevated but i am not inclined to treat just one readingsta sunshine has been walking the past month before that was riding bike will cont with metoprolol at 1/2 tab bid tolerates bp at home has been good yesterday was 125/69- 64 Impaired f asting glycemia 773938221 R73.01 he continues to do well lab work now reviewed reveals A1c of 6.0 was 6.2 was 6.1 and is doing great he was 6.3 and was 6.5 this winter was 6.2 now 6.4 and prior 6.1eating well and stays activehas lab standing order Ischemic h eart disease 926121574 I25.9 [id number] Lincoln Reyes, [facility] [address] [facility],[place] [employer] [place] [address] 04/18/2023 10:45:26 04/18/2023 11:47:39 Aneurysm of thoracic aorta 906914387 I71.20 will be seeing cardiac surgeon to rechk in next 2024 Essential hypertension 74060858 I10 bp here is sl elevated but i am not inclined to treat just one readingsta sunshine has been walking the past month before that was riding bike will cont with metoprolol at 1/2 tab bid tolerates bp at home has been good yesterday was 125/69- 64 Hypercholesterolemia 136 32925 E78.00 lab from last visit doing great with low ldl at 93 and low trig at 93 hdl is in 46 discussed diet and exercise daily and we will rechk his lab in sep Ischemic h eart disease 087134391 I25.9 we will refer to dr shen for discussion [id number] Lincoln Reyes [facility] [address] [facility],[address] [employer] [place] [facility] [place] [address] 08/10/2023 14:00:53 08/10/2023 16:30:53 Essential hypertension 13094234 I10 bp here is sl elevated but i am not inclined to treat just one readingsta sunshine has been walking the past month before that was riding bike will cont with metoprolol at 1/2 tab bid tolerates bp at home has been good yesterday was 125/69- 64 Hypercholesterolemia 136 69251 E78.00 lab from last visit doing great with low ldl at 93 and low trig at 93 hdl is in 46 discussed diet and exercise daily and we will rechk his lab in sep Ischemic h eart disease 546640181 I25.9 we will refer to dr shen for discussion [id number] Lincoln Reyes, [facility] [address] [facility],[place] [address] 08/19/2023 08:20:07 08/19/2023 14:29:08 Essential hypertension 55508827 I10 bp here is sl elevated but i am not inclined to treat just one readingsta sunshine has been walking the past month before that was riding bike will cont with metoprolol at 1/2 tab bid tolerates bp at home has been good yesterday was 125/69- 64 Hypercholesterolemia 136 87719 E78.00 lab from last visit doing great with low ldl at 93 and low trig at 93 hdl is in 46 discussed diet and exercise daily and we will rechk his lab in sep Diarrhea 72397576 R19.7 going to eat light and only clear liquids he has been drinking oj Patient will monitor blood pressure and report if unable to control or if they develop new symptoms.w e will start him on metronidaz ole and will hold the rosuvastat in and ezetimibe Left foot drop 601300975 1 34410 M21.372 [id number] Lincoln Reyes, [facility] [address] [facility],[place] [address] 11/22/2023 13:57:16 11/22/2023 14:49:59 Essential hypertension 03737212 I10 bp here is sl elevated but i am not inclined to treat just one readingsta sunshine has been walking the past month before that was riding bike will cont with metoprolol at 1/2 tab bid tolerates bp at home has been good yesterday was 125/69- 64 Hypercholesterolemia 136 76315 E78.00 lab from last visit doing great with low ldl at 93 and low trig at 93 hdl is in 46 discussed diet and exercise daily and we will rechk his lab in sep Ischemic h eart disease 511990144 I25.9 we will refer to dr shen for discussion 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 noted that he is struggling at times Aneurysm o f thoracic aorta 693599921 I71.20 will be seeing cardiac surgeon to rechk in next year 2024 Eczema 94821827 L30.9 has evid of pelling eczema type lesion on left leg from crossing hsi legs Insomnia 969045728 G47.0 0 will try traz Impaired f asting glycemia 904824778 R73.01 he continues to do well lab work now reviewed reveals A1c of 6.0 was 6.2 was 6.1 and is doing great he was 6.3 and was 6.5 this winter was 6.2 now 6.4 and prior 6.1eating well and stays activehas lab standing order [id number] Lincoln Reyes DO [facility] [address] [facility],[place] [address] 01/17/2024 14:55:38 01/17/2024 15:55:21 Aneurysm of thoracic aorta 346985802 I71.20 will be seeing cardiac surgeon to rechk in next year 2024 Spinal vanessa nosis of lumbar region 78232081 M48.061 noted that he is struggling at times was due to get inj into his back but [facility] at the time of the appt told him they couldnt do it and also he had to pay 500 for the cortisone Depression screening 171 510572 Z13.31 borderline Essential hypertension 82912004 I10 bp here is sl elevated but i am not inclined to treat just one readingsta sunshine has been walking the past month before that was riding bike will cont with metoprolol at 1/2 tab bid tolerates bp at home has been good yesterday was 125/69- 64 Impaired f asting glycemia 632722238 R73.01 he continues to do well 6.1 lab work now reviewed reveals A1c of 6.0 was 6.2 was 6.1 and is doing great he was 6.3 and was 6.5 this winter was 6.2 now 6.4 and prior 6.1eating well and stays activehas lab standing order Pain of ri ght hip joint 3979124191 97860 M25.551 [id number] Lincoln Reyes DO [facility] [address] [facility] [address],[place] [address] 03/21/2024 13:44:23 03/21/2024 16:49:52 Depression screening 270940679 Z13.31 borderline Essential hypertension 98624795 I10 bp here is sl elevated but i am not inclined to treat just one readingsta sunshine has been walking the past month before that was riding bike will cont with metoprolol at 1/2 tab bid tolerates bp at home has been good yesterday was 125/69- 64 Impaired f asting glycemia 517501011 R73.01 he continues to do well 6.1 lab work now reviewed reveals A1c of 6.0 was 6.2 was 6.1 and is doing great he was 6.3 and was 6.5 this winter was 6.2 now 6.4 and prior 6.1eating well and stays activehas lab standing order Ischemic h eart disease 990070968 I25.9 we will refer to dr shen for discussion Aneurysm o f thoracic aorta 738969245 I71.20 will be seeing cardiac surgeon to rechk in next 2024 Spinal vanessa nosis of lumbar region 71347057 M48.061 noted that he is struggling at times was due to get inj into his back but [facility] at the time of the appt told him they couldnt do it and also he had to pay 500 for the cortisone Insomnia G47.0 9 will try holding the traz to see if he needs it any more [id number] Lincoln Reyes, DO [facility] [address] [facility] [address],[place] [address] 06/26/2024 13:33:45 06/26/2024 14:25:41 Impaired fasting glycemia 245856795 R73.01 he continues to do well 6.1 lab work now reviewed reveals A1c of 6.0 was 6.2 was 6.1 and is doing great he was 6.3 and was 6.5 this winter was 6.2 now 6.4 and prior 6.1eating well and stays activehas lab standing order Hypercholesterolemia 136 31394 E78.00 lab from last visit doing great with low ldl at 93 and low trig at 93 hdl is in 46 discussed diet and exercise daily and we will rechk his lab in sep Insomnia G47.0 9 will try holding the traz to see if he needs it any more Ischemic h eart disease 545837390 I25.9 we will refer to dr shen for discussion Spinal vanessa nosis of lumbar region 75029620 M48.061 noted that he is struggling at times but is dealing with it [id number] Lincoln Reyes [facility] [address] [facility] [address] [address] 09/21/2024 10:37:34 09/21/2024 11:13:38 Essential hypertension 69562903 I10 bp here is doing well and at homestates has been walking the past month before that was riding bike will cont with metoprolol at 1/2 tab bid tolerates bp at home has been good yesterday was 125/69- 64 Aneurysm o f thoracic aorta 932442801 I71.20 will be seeing cardiac surgeon to rechk in next year 2024needs echo done Ischemic h eart disease 461683139 I25.9 will be seeing cardio after he gets a nuclear perfusion scan 10-09-24 Infection of sebaceous cyst 679947749 L72.3 resolved now doing fine Impaired f asting glycemia 561429401 R73.01 he continues to do well 6.1 lab work now reviewed reveals A1c of 6.0 was 6.2 was 6.1 and is doing great he was 6.3 and was 6.5 this winter was 6.2 now 6.4 and prior 6.1eating well and stays activehas lab standing order [id number] Lincoln Reyes [facility] [address] [facility] [address],[place] [facility] [place] [place] [address] 12/03/2024 15:20:03 12/03/2024 16:00:54 Essential hypertension 30864283 I10 bp here is doing well and at homestates has been walking the past month before that was riding bike will cont with metoprolol at 1/2 tab bid tolerates bp at home has been good yesterday was 125/69- 64 Hypercholesterolemia 136 41214 E78.00 lab from last visit doing great with low ldl at 93 and low trig at 93 hdl is in 46 discussed diet and exercise daily and we will rechk his lab in sep Impaired f asting glycemia 344299529 R73.01 he continues to do well 6.4 nomajor issues lab work now reviewed reveals A1c of 6.0 was 6.2 was 6.1 and is doing great he was 6.3 and was 6.5 this winter was 6.2 now 6.4 and prior 6.1eating well and stays activehas lab standing order Depression screening 171 658127 Z13.31 borderline Aneurysm o f thoracic aorta 639454576 I71.[address] and did bartolo had recent nuclear scan with verbal report as excellentn eeds echo done Health Concerns Section Related Observation LastModified by Organization Detai ls LastModified Time None Recorded Concern Status LastModified by Organization Details LastModified Time None Recorded Advance Directives Directive None Recorded Payers Insurance Date Sequence Insurance Name Policy Number Policy Pearson Covered Member ID Pearson Member ID Guarantor Name 12/03/2024 2 [place] [id number] Nikolay Carr Dariusz [id number] Nikolay Arzola 11/27/2024 1 MEDICARE B-[place]: [facility] Nikolay Carr Geoffrion [id number] Nikolay Arzola Notes Date Note Type Note Provider Name and Address Organization Details Recorded Time 01/17/20 24 text/htm l here for chetan and is frustrated and having a lot of discomfortrelates that he has been frustrated with [facility] as they told him they wanted to give him hip and and back inj and when he got there they told him he needed 500 USD and that they couldnt do it Lincoln Reyes, DO [address] [place], [address], [facility] 01/17/2024 15:48:52 03/21/20 24 text/htm l Care Management - HypertensionReported bypatient.Self Care:not under emotional stress Severity:symptoms are improving; does not interfere with daily activities Associated Symptoms:no dizziness; no lightheadedness; no chest pain; no shortness of breath; no palpitations; no edema; no calf muscle cramps; no blurred vision; no confusion; no headaches; no fatigue here for chetan states his back is bad if he rides his bike it hurts to get on and off but is ok [id number] is 6.1 relates had a hip lizzie inj and the pain there is gone but he is still limping and this has affecting his walking and that is his back Lincoln Reyes DO [address] [place], [address], [facility] 03/21/2024 14:08:44 06/26/20 text/htm l here for rechk and is feeling well overall'back is still sore but is able to deal with occ alleveno cp no sobwalking a distance causes the radiculopathy cane does help Lincoln Reyes DO [address] [place], [address], [facility] 06/26/2024 14:04:56 09/21/19 text/htm l Care Management - DiabetesReported bypatient.Self Care:seeing eye doctor yearly for dilated eye exam; checking feet regularly; normal range of home blood sugars (in the low 100s); no side effects from medications Associated Symptoms:symptoms are usually well controlled; no fatigue; no dizziness; no excessive sweating; no headaches; no confusion; no increased thirst; no increased appetite; no increased urination; no blurred vision; no numbness of feet; no calluses on feetCare Management - HypertensionReported bypatient.Self Care:not under emotional stress Severity:symptoms are improving; does not interfere with daily activities Associated Symptoms:no dizziness; no lightheadedness; no chest pain; no shortness of breath; no palpitations; no edema; no calf muscle cramps; no blurred vision; no confusion; no headaches; no fatigue here for rechk and is doing okhad a blocked gland in his left axillaseen at given cephalexin and this resolved Lincoln Reyes DO [address] [place], [address], [facility] 09/21/2024 11:08:10 12/04/19 text/htm l Care Management - DiabetesReported bypatient.Self Care:seeing eye doctor yearly for dilated eye exam; checking feet regularly; normal range of home blood sugars (in the low 100s); no side effects from medications Associated Symptoms:symptoms are usually well controlled; no fatigue; no dizziness; no excessive sweating; no headaches; no confusion; no increased thirst; no increased appetite; no increased urination; no blurred vision; no numbness of feet; no calluses on feetCare Management - HyperlipidemiaReported bypatient.Control:usually well controlled; improving; at goal Complications:no coronary artery disease; no heart attack; no cardiovascular disease; no pancreatitis; no strokeCare Management - HypertensionReported bypatient.Self Care:not under emotional stress Severity:symptoms are improving; does not interfere with daily activities Associated Symptoms:no dizziness; no lightheadedness; no chest pain; no shortness of breath; no palpitations; no edema; no calf muscle cramps; no blurred vision; no confusion; no headaches; no fatigue here for rechk and is doing ok had a recent nuclear scan Lincoln Reyes, DO [address] [facility], [place], [address], [facility] 12/03/2024 15:53:49
[2025-02-26 14:09] LABS: Hemoglobin A1C 170.4449 umol/L; Total Hemoglobin (HGBA1C) 3715.3268 umol/L
== END 2025-02-26 07:31 | disposition home or self-care (01) ==
LOC: HO.MANLDS 07:30
PROVIDERS: Visit Provider Internal Medicine
DX: R73.01 Impaired fasting glucose (principal)
CPT/HCPCS: 36415; 83036

== ENCOUNTER 2025-05-24 07:44 | Outpatient (REF) | payer MEDICARE, SELFPAY ==
--- OUTSIDE RECORDS SUMMARY | 2025-05-24 07:49 | XMS_ITS | Encounter Summary ---
Author Organization [facility] Address [address] [place] [address] Phone Care Team Providers Care Pourer Metal Name Role Phone Lincoln Weiss DO Primary Care Provider [phone] Encounter Details Date Type Department Care Team (Late st Contact Info) Description 07/27/2017 Ancillary Orders Virtual Department [address] [place] [address] Lincoln Weiss DO [address] [place] [address] [email or web address] Injury of right brachial plexus, initial encounter Social History Tobacco Use Types Packs/Day Years Used Date Smoking Tobacco: Never Assessed Sex and Gender Information Value Date Recorded Sex Assigned at Not on file Legal Sex Male 10:07 PM EDT Gender Identity Not on file Sexual Orientation Straight 11/06/2024 5: 14 PM EDT documented as of this encounter Plan of Treatment Not on file documented as of this encounter Visit Diagnoses Diagnosis Injury of right brachial plexus, initial encounter documented in this encounter Additional Health Concerns Infection Onset Date Last Indicated Resolved Time CoV-Risk 08/05/2023 08/05/2023 08/05/2023 1:15 AM EST COVID-19 08/05/2023 08/05/2023 08/26/2023 1:23 AM EST documented as of this encounter Care Teams Pourer Metal Relationship Specialty Start Date End Date Lincoln Weiss DO PCP - General Internal Medicine 11/13/17 documented as of this encounter Additional Source Comments The information contained in this document represents components of the legal health record. It is not the complete legal health record.[facility]
--- OUTSIDE RECORDS SUMMARY | 2025-05-24 07:49 | XMS_ITS | Encounter Summary ---
Author Organization [facility] Address [address] [place], [place] [id number] Phone Care Team Providers Care Marker Maker Name Role Phone Lincoln Weiss DO Primary Care Provider [phone] Encounter Details Date Type Department Care Team (Late st Contact Info) Description 07/11/2017 Procedure Pass [facility], Ct Scan - [address] [address] Social History Tobacco Use Types Packs/Day Years Used Date Smoking Tobacco: Never Assessed Sex and Gender Information Value Date Recorded Sex Assigned at Not on file Legal Sex Male 10:07 PM EDT Gender Identity Not on file Sexual Orientation Straight 11/06/2024 5: 14 PM EDT documented as of this encounter Plan of Treatment Not on file documented as of this encounter Visit Diagnoses Not on filedocumented in this encounter Additional Health Concerns Infection Onset Date Last Indicated Resolved Time CoV-Risk 08/05/2023 08/05/2023 08/05/2023 1:15 AM EST COVID-19 08/05/2023 08/05/2023 08/26/2023 1:23 AM EST documented as of this encounter Care Teams Marker Maker Relationship Specialty Start Date End Date Lincoln Weiss DO PCP - General Internal Medicine 07/11/17 documented as of this encounter Additional Source Comments The information contained in this document represents components of the legal health record. It is not the complete legal health record.[facility]
--- OUTSIDE RECORDS SUMMARY | 2025-05-24 07:49 | XMS_ITS | Encounter Summary ---
Author Organization [facility] Address [address] [place] [address] Phone Care Team Providers Care Protein Chemist Name Role Phone Lincoln Weiss DO Primary Care Provider [phone] Encounter Details Date Type Department Care Team (Late st Contact Info) Description 07/27/2017 Procedure Pass [facility], [address] [place] [address] Social History Tobacco Use Types Packs/Day Years [...] documented as of this encounter Care Teams Protein Chemist Relationship Specialty Start Date End Date Lincoln Weiss DO [email or web address] PCP - General Internal Medicine 07/11/17 documented as of this encounter Additional Source Comments The information contained in this document represents components of the legal health record. It is not the complete legal health record.[facility]
--- OUTSIDE RECORDS SUMMARY | 2025-05-24 07:49 | XMS_ITS | Encounter Summary ---
Author Organization [facility] Address [address] [place] [address] Phone Care Team Providers Care Poured Concrete Wall Technician Name Role Phone Lincoln Weiss DO Primary Care Provider [phone] Encounter Details Date Type Department Care Team (Late st Contact Info) Description 09/11/2019 Ancillary Orders [facility], X-Ray - [facility] [address] [place] [address] Lincoln Weiss DO [address] [facility] [place] [address] [email or web address] Left hip pain Social History Tobacco Use Types Packs/Day Years Used Date Smoking Tobacco: Former Cigarettes Q uit: 06/12/1991 Smokeless Tobacco: Never Alcohol Use Standard Drinks/Week Comments Yes 0 (1 standard drink = 0.6 oz pur e alcohol) rare Sex and Gender Information Value Date Recorded Sex Assigned at Not on file Legal Sex Male 10:07 PM EDT Gender Identity Not on file Sexual Orientation Straight 11/06/2024 5: 14 PM EDT documented as of this encounter Plan of Treatment Not on file documented as of this encounter Results * XR HIPS 2+ VW EA BILAT PLUS PELVIS (09/11/2019 2:54 PM EST) Anatomical Region Laterality Modality Hip, Pelvis Radiographic Linda ging 09/11/2019 3:05 PM EST Impressions 09/11/2019 3:07 PM EST No acute fracture or avascular necrosis. POS - [id number] Narrative 09/11/2019 3:07 PM EST EXAM: XR HIPS 2+ VW EA BILAT PLUS PELVIS HISTORY: XR LEFT HIP LEFT HIP PAIN COMPARISON: Blank FINDINGS: There is no acute fracture or dislocation. No focal periosteal reaction or osteopenia. Small calcifications are present adjacent to the right greater trochanter which may be secondary to calcific tendinitis. The hip joint spaces are grossly unremarkable. Multiple surgical clips are noted over the pelvis. The sacroiliac joints are grossly unremarkable. Procedure Note Gene Loco MD - 09/11/2019 EXAM: XR HIPS 2+ VW EA BILAT PLUS PELVIS HISTORY: XR LEFT HIP LEFT HIP PAIN COMPARISON: Blank FINDINGS: There is no acute fracture or dislocation. No focal periostealreaction or osteopenia. Small calcifications are present adjacent to theright greater trochanter which may be secondary to calcific tendinitis.The hip joint spaces are grossly unremarkable. Multiple surgical clips are noted over the pelvis. The sacroiliac jointsare grossly unremarkable. IMPRESSION: No acute fracture or avascular necrosis. POS - [id number] us Lincoln Weiss DO IMG XR PELVIS Final Result documented in this encounter Visit Diagnoses Diagnosis Left hip pain Pain in joint, pelvic region and thigh Left hip pain Pain in joint, pelvic region and thigh documented in this encounter Additional Health Concerns Infection Onset Date Last Indicated Resolved Time CoV-Risk 08/05/2023 08/05/2023 08/05/2023 1:15 AM EST COVID-19 08/05/2023 08/05/2023 08/26/2023 1:23 AM EST documented as of this encounter Care Teams Poured Concrete Wall Technician Relationship Specialty Start Date End Date Lincoln Weiss DO [email or web address] PCP - General Internal Medicine 07/11/17 documented as of this encounter Additional Source Comments The information contained in this document represents components of the legal health record. It is not the complete legal health record.[facility]
--- OUTSIDE RECORDS SUMMARY | 2025-05-24 07:49 | XMS_ITS | Encounter Summary ---
Author Organization [facility] Address [address] [place] [address] Phone Care Team Providers Care Custodian Manager Name Role Phone Lincoln Weiss DO Primary Care Provider [phone] Reason for Referral * MRI/CAT Scan - Closed Specialty Diagnoses / Procedures Referred By Contlico t Referred To Contact Radiology Diagnoses Foot drop, left foot Procedures MRI Lumbar Spine Lincoln Weiss DO Phone: tel: fax: [email or web address] Referral ID Status Reason Start Date Expiration Date Visits Re quested Visits Authorized [id number] Closed 08/24/2023 1 1 Encounter Details Date Type Department Care Team (Late st Contact Info) Description 08/24/2023 Transcribe Orders Virtual Department [address] [place] [address] Lincoln Weiss DO [address] [facility] [place] [address] Foot drop, left foot (Primary Dx) Social History Tobacco Use Types Packs/Day Years Used Date Smoking Tobacco: Former Cigarettes Q uit: 06/12/1991 Smokeless Tobacco: Never Alcohol Use Standard Drinks/Week Comments Yes 0 (1 standard drink = 0.6 oz pur e alcohol) rare Education Answer Date Recorded Are you interested in more education? Not on benjamin e 12/24/2022 Are you concerned about learning? Not on file 12/24/2022 No 12/24/2022 No 12/24/2022 Digital Access Answer Date Recorded No 01/24/2023 No 01/24/2023 Reliable internet access at home? Not on file 01/24/2023 Device with a working camera? Not on file Intimate Partner Violence Answer Date R ecorded Are you denied basic needs s uch as food, clothing, or medical care? No 08/05/2023 In the past 12 months have y ou been in a relationship with a person who hurts, threatens, or tries to control you? No 08/05/2023 Are you denied basic needs s uch as food, clothing, or medical care? No 08/05/2023 In the past 12 months have y ou been in a relationship with a person who hurts, threatens, or tries to control you? No 08/05/2023 Sex and Gender Information Value Date Recorded Sex Assigned at Not on file Legal Sex Male 10:07 PM EDT Gender Identity Not on file Sexual Orientation Straight 11/06/2024 5: 14 PM EDT documented as of this encounter Plan of Treatment Not on file documented as of this encounter Results * MRI LUMBAR SPINE (NEURO) WITHOUT CONTRAST (09/08/2023 5:29 PM EST) Anatomical Region Laterality Modality L-spine Magnetic Resonan ce 09/09/2023 6:37 AM EST Impressions 09/10/2023 5:57 AM EST Lumbar spine degenerative changes as described, most notable for severe spinal canal stenosis at L4-L5, as well as up to moderate multilevel foraminal stenosis from L1-L2 through L4-L5. Narrative 09/10/2023 5:57 AM EST MRI LUMBAR SPINE (NEURO) WITHOUT CONTRAST Referring clinician's provided indication for this examination in Epic: Outside Radiology Order; LEFT FOOT DROP TECHNIQUE: MRI LUMBAR SPINE (NEURO) WITHOUT CONTRAST Multi-sequence, multi-planar MRI of the lumbar spine was performed without intravenous contrast. COMPARISON: None FINDINGS: Alignment and Vertebrae: Grade 1 anterolisthesis of L4 on L5, and mild retrolisthesis of L2 on L3. No compression fracture. Marrow: Heterogeneous background marrow without definite suspicious focal marrow replacing lesion. Discs and Endplates: Severe disc space narrowing at L1-L2 and L2-L3. Multilevel marginal osteophyte formation. Other Findings: T2 hyperintense left renal lesions most likely a benign cyst. Findings by level: T12-L1: Mild facet arthropathy. Mild spinal canal stenosis. No significant foraminal stenosis. L1-L2: Posterior disc osteophyte complex. Moderate right foraminal stenosis. Mild spinal canal stenosis. L2-L3: Posterior disc osteophyte complex. Moderate left and mild right foraminal stenosis. Mild to moderate spinal canal stenosis. L3-L4: Diffuse disc bulge. Mild to moderate left and moderate right foraminal stenosis. Mild spinal canal stenosis. L4-L5: Diffuse disc bulge and uncovering of the disc by grade 1 anterolisthesis of L4 and L5. Severe bilateral facet arthropathy. Severe spinal canal stenosis. Moderate bilateral foraminal stenosis. L5-S1: Diffuse disc bulge. Mild right foraminal stenosis. No significant spinal canal stenosis. Procedure Note Gene Silva MD - 09/10/2023 MRI LUMBAR SPINE (NEURO) WITHOUT CONTRAST Referring clinician's provided indication for this examination in Epic:Outside Radiology Order; LEFT FOOT DROP TECHNIQUE: MRI LUMBAR SPINE (NEURO) WITHOUT CONTRAST Multi-sequence, multi-planar MRI of the lumbar spine was performed withoutintravenous contrast. COMPARISON: None FINDINGS: Alignment and Vertebrae: Grade 1 anterolisthesis of L4 on L5, and mildretrolisthesis of L2 on L3. No compression fracture. Marrow: Heterogeneous background marrow without definite suspicious focalmarrow replacing lesion. Discs and Endplates: Severe disc space narrowing at L1-L2 and L2-L3.Multilevel marginal osteophyte formation. Other Findings: T2 hyperintense left renal lesions most likely a benigncyst. Findings by level: T12-L1: Mild facet arthropathy. Mild spinal canal stenosis. No significantforaminal stenosis. L1-L2: Posterior disc osteophyte complex. Moderate right foraminalstenosis. Mild spinal canal stenosis. L2-L3: Posterior disc osteophyte complex. Moderate left and mild rightforaminal stenosis. Mild to moderate spinal canal stenosis. L3-L4: Diffuse disc bulge. Mild to moderate left and moderate rightforaminal stenosis. Mild spinal canal stenosis. L4-L5: Diffuse disc bulge and uncovering of the disc by grade 1anterolisthesis of L4 and L5. Severe bilateral facet arthropathy. Severespinal canal stenosis. Moderate bilateral foraminal stenosis. L5-S1: Diffuse disc bulge. Mild right foraminal stenosis. No significantspinal canal stenosis. IMPRESSION: Lumbar spine degenerative changes as described, most notable for severespinal canal stenosis at L4-L5, as well as up to moderate multilevelforaminal stenosis from L1-L2 through L4-L5. us Lincoln Weiss DO IMG MR XSPECIALTY Final Result documented in this encounter Visit Diagnoses Diagnosis Foot drop, left foot- Primary Foot drop, left foot documented in this encounter Additional Health Concerns Infection Onset Date Last Indicated Resolved Time COVID-19 08/05/2023 08/05/2023 08/26/2023 1:23 AM EST documented as of this encounter Care Teams Custodian Manager Relationship Specialty Start Date End Date Lincoln Weiss DO [email or web address] PCP - General Internal Medicine 07/11/17 documented as of this encounter Additional Source Comments The information contained in this document represents components of the legal health record. It is not the complete legal health record.[facility]
--- OUTSIDE RECORDS SUMMARY | 2025-05-24 07:49 | XMS_ITS | Encounter Summary ---
Author Organization [facility] Address [address] [place] [address] Phone Care Team Providers Care Project Program Manager Name Role Phone Lincoln Weiss DO Primary Care Provider [phone] Encounter Details Date Type Department Care Team (Late st Contact Info) Description 06/20/2018 Procedure Pass [facility] Admitting Dept [facility] Department [address] [place] [id number] Social History Tobacco Use Types Packs/Day Years [...] documented as of this encounter Care Teams Project Program Manager Relationship Specialty Start Date End Date Lincoln Weiss DO PCP - General Internal Medicine 07/11/17 documented as of this encounter Additional Source Comments The information contained in this document represents components of the legal health record. It is not the complete legal health record.[facility]
--- OUTSIDE RECORDS SUMMARY | 2025-05-24 07:49 | XMS_ITS | Encounter Summary ---
Author Organization [facility] Address [address] [place] [address] Phone Care Team Providers Care Vocational Nursing Instructor Name Role Phone Lincoln Weiss DO Primary Care Provider [phone] Encounter Details Date Type Department Care Team (Late st Contact Info) Description 09/13/2018 Ancillary Orders Virtual Department [address] [place] [address] Lincoln Weiss DO [address] [facility] [place] [address] [email or web address] Encounter for screening for cardiovascular disorders Social History Tobacco Use Types Packs/Day Years [...] documented as of this encounter Results * US Abdominal Aortic Screening (09/22/2018 8:18 AM EST) Anatomical Region Laterality Modality Abdomen Ultrasound 09/22/2018 8:25 AM EST Impressions 09/22/2018 12:51 PM EST No evidence of an abdominal aortic aneurysm. Moderate degree of atherosclerotic disease. POS - [id number] Edited by: Rashmi Victor on 09/22/2018 8:47 AM Narrative 09/22/2018 12:51 PM EST HISTORY: History of cardiovascular disease. Abdominal aortic aneurysm screening. COMPARISON: None FINDINGS: No evidence of an abdominal aortic aneurysm. Aorta measures up to 2.8 cm maximally in the proximal portion. The mid portion measures up to 2.5 cm in diameter and the distal portion measures up to 2.4 cm. Common iliac arteries are nonaneurysmal measuring up to 1.2 cm on the right and 1.3 cm on the left. Moderate degree of echogenicities along the aortic and common iliac garcia from atherosclerotic disease. Aorta and iliac vessels are widely patent on color Doppler. Procedure Note Lana Cobb MD - 09/22/2018 HISTORY: History of cardiovascular disease. Abdominal aortic aneurysmscreening. COMPARISON: None FINDINGS: No evidence of an abdominal aortic aneurysm. Aorta measures up to 2.8 cmmaximally in the proximal portion. The mid portion measures up to 2.5 cmin diameter and the distal portion measures up to 2.4 cm. Common iliacarteries are nonaneurysmal measuring up to 1.2 cm on the right and 1.3 cmon the left. Moderate degree of echogenicities along the aortic andcommon iliac garcia from atherosclerotic disease. Aorta and iliac vesselsare widely patent on color Doppler. IMPRESSION: No evidence of an abdominal aortic aneurysm. Moderate degree ofatherosclerotic disease. POS - [id number] Edited by: Rashmi Victor on 09/22/2018 8:47 AM us Lincoln Weiss DO IMG US ABDOMEN Final Result documented in this encounter Visit Diagnoses Diagnosis Encounter for screening for cardiovascular disorders Encounter for screening for cardiovascular disorders documented in this encounter Additional Health Concerns Infection Onset Date Last Indicated Resolved Time CoV-Risk 08/05/2023 08/05/2023 08/05/2023 1:15 AM EST COVID-19 08/05/2023 08/05/2023 08/26/2023 1:23 AM EST documented as of this encounter Care Teams Vocational Nursing Instructor Relationship Specialty Start Date End Date Lincoln Weiss DO [phone] (work) [email or web address] PCP - General Internal Medicine 07/11/17 documented as of this encounter Additional Source Comments The information contained in this document represents components of the legal health record. It is not the complete legal health record.[facility]
--- OUTSIDE RECORDS SUMMARY | 2025-05-24 07:49 | XMS_ITS | Encounter Summary ---
Author Organization [facility] Address [address] [place] [address] Phone Care Team Providers Care Compounding Technician Name Role Phone Lincoln Weiss Primary Care Provider [phone] Encounter Details Date Type Department Care Team (Late st Contact Info) Description 08/24/2023 Procedure Pass [facility], [address] [place] [address] Social History Tobacco Use Types Packs/Day Years [...] documented as of this encounter Care Teams Compounding Technician Relationship Specialty Start Date End Date Lincoln Weiss DO [email or web address] PCP - General Internal Medicine 07/11/17 documented as of this encounter Additional Source Comments The information contained in this document represents components of the legal health record. It is not the complete legal health record.[facility]
--- OUTSIDE RECORDS SUMMARY | 2025-05-24 07:49 | XMS_ITS | Encounter Summary ---
Author Organization [facility] Address [address] [place] [id number] Phone Care Team Providers Care [employer] Name Role Phone Lincoln Weiss DO Primary Care Provider [phone] Reason for Referral * MRI/CAT Scan - Closed Specialty Diagnoses / Procedures Referred By Chiqui moran Referred To Contact Radiology Diagnoses Injury of right brachial plexus, initial encounter Procedures MRI Brachial Plexus (Right) MRI FOREARM (RIGHT) MRI NECK Lincoln Weiss DO Phone: tel: fax: [email or web address] Referral ID Status Reason Start Date Expiration Date Visits Re quested Visits Authorized [id number] Closed 07/27/2017 07/27/2018 1 1 Encounter Details Date Type Department Care Team (Late st Contact Info) Description 07/27/2017 Ancillary Orders Virtual Department [address] [place] [address] Lincoln Weiss DO [address] [facility] [place] [address] [email or web address] Injury of right brachial plexus, initial encounter [...] as of this encounter Results * MRI BRACHIAL PLEXUS WITH AND WITHOUT (RIGHT) (08/05/2017 11:09 AM EST) Anatomical Region Laterality Modality Chest Magnetic Resonan ce 08/05/2017 11:1 1 AM EST Impressions 08/05/2017 11:28 AM EST No evidence of abnormalities in the right brachial plexus to explain pain and numbness in the right upper extremity. Multilevel severe degenerative disc and endplate changes in the cervical spine with evidence of spinal stenosis at C4-C5 and C5-C6. POS [id number] Narrative 08/05/2017 11:28 AM EST HISTORY: Lifting injury. Today's later acute sharp and burning pain anterior right shoulder with numbness in right arm and hand. COMPARISON: None. TECHNIQUE: Nonenhanced axial T2, STIR, sagittal T1, T2, coronal T1, T2, STIR, pre- and mdbf-[id number]-fhjdojou axial T1 fat sat and a coronal T1 post-gadolinium sequence obtained. FINDINGS: No evidence of space-occupying lesions or suspicious edema in the region of the right brachial plexus. No significant asymmetries from right to left. Severe degenerative disc and endplate changes at C4-C5, C5-C6 and C6-C7 slightly less severe degenerative disc and endplate changes at C3-C4 and C7-T1. Mild spondylolisthesis of C3 on C4 and C7 on T1. Evidence of central canal stenosis at C4-C5 and C5-C6 due to posterior osteophytes and thickening of ligamentum flavum. Procedure Note Chris Marroquin MD - 08/05/2017 HISTORY: Lifting injury. Today's later acute sharp and burning painanterior right shoulder with numbness in right arm and hand. COMPARISON: None. TECHNIQUE: Nonenhanced axial T2, STIR, sagittal T1, T2, coronal T1, T2,STIR, pre- and brlu-fmjxjqzidd-jdidbgrz axial T1 fat sat and a coronal [id number] sequence obtained. FINDINGS: No evidence of space-occupying lesions or suspicious edema in the regionof the right brachial plexus. No significant asymmetries from right toleft. Severe degenerative disc and endplate changes at C4-C5, C5-C6 and C6-E3pavychub less severe degenerative disc and endplate changes at C3-C4 andC7-T1. Mild spondylolisthesis of C3 on C4 and C7 on T1. Evidence ofcentral canal stenosis at C4-C5 and C5-C6 due to posterior osteophytes andthickening of ligamentum flavum. IMPRESSION: No evidence of abnormalities in the right brachial plexus to explain painand numbness in the right upper extremity. Multilevel severe degenerativedisc and endplate changes in the cervical spine with evidence of spinalstenosis at C4-C5 and C5-C6. POS [id number] us Lincoln Weiss DO IMG MR HEAD/NECK Final Result documented in this encounter Visit Diagnoses Diagnosis Injury of right brachial plexus, initial encounter Injury of right brachial plexus, initial encounter documented in this encounter Additional Health Concerns Infection Onset Date Last Indicated Resolved Time CoV-Risk 08/05/2023 08/05/2023 08/05/2023 1:15 AM EST COVID-19 08/05/2023 08/05/2023 08/26/2023 1:23 AM EST documented as of this encounter Care Teams [employer] Relationship Specialty Start Date End Date Lincoln Weiss DO [email or web address] PCP - General Internal Medicine 07/11/17 documented as of this encounter Additional Source Comments The information contained in this document represents components of the legal health record. It is not the complete legal health record.[facility]
--- OUTSIDE RECORDS SUMMARY | 2025-05-24 07:49 | XMS_ITS | Data Portability ---
Author Organization [facility] aNhed Internal Medicine, Telehealth Patient Home Address [address] [place] [address] Assessment Encounter Date Assessment Date Assessment LastModified by Organization Details LastModified Time 03/21/2024 03/21/2024 [address] [place] [address] (LAB COORDINATOR) MDM MODERATE MUST MEET 2 OUT OF 3 [...] COVERED Not available 03/21/2024 14:01:11 09/21/2024 09/21/20[place] [id number] [place] [address] (LAB COORDINATOR) MDM HIGH MUST MEET 2 OUT OF [...] THAT IS COVERED Not available 09/21/2024 11:02:44 03/12/2025 03/12/2025 [id number] [place] [id number] (LAB COORDINATOR) MDM MODERATE MUST MEET 2 OUT OF 3 [...] EACH ELEMENT THAT IS COVERED Not available 03/12/2025 14:19:18 Plan of Treatment Reminders Order Date Submit Date Provider Last Modified By Organization Details Last Modified Time Details Appointments FOLLOW UP 15 2024 02:00P M DR REYES Not available Not available Not available Lab hemoglobi n A1c, QN, blood 2024 025 [facility], [address] [place] [address], [id number], 03/12/2025 14:31:54 CMP, serum or plasma 2024 025 [facility], [address] [place] [address], [id number], 03/12/2025 14:31:54 urinalysi s, complete 2024 025 [facility], [address] [place] [address], [id number], 03/12/2025 14:31:54 lipid panel, blood 2024 025 [facility], [address] [place] [address], [id number], 03/12/2025 14:31:54 PSA, serum or plasma 2024 025 [facility], [address] [place] [address], [id number], 03/12/2025 14:31:54 CBC 2024 025 [facility], [address] [place] [address], [id number], 03/12/2025 14:31:54 lipid panel, blood 2024 025 [facility], [address] [place] [address], [id number], 12/03/2024 15:53:12 CMP, serum or plasma 2024 025 [facility], [address] [place] [address], [id number], 12/03/2024 15:53:12 PSA, serum or plasma 2024 025 [facility], [address] [place] [address], [id number], 12/03/2024 15:53:12 CBC 2024 025 [facility], [address] [place] [address], [id number], 12/03/2024 15:53:12 hemoglobi n A1c, QN, blood 2024 025 [facility], [address] [place] [address], [id number], 11/22/2024 12:48:27 hemoglobi n A1c, QN, blood 2024 025 [facility], [address] [place] [address], [id number], 02/27/2025 12:46:28 hemoglobi n A1c, QN, blood 2024 025 [facility], [address] [place] [address], [id number], 02/27/2025 12:46:28 CMP, serum or plasma 2023 024 [facility], [address] [place] [address], 125[address], 06/26/2024 14:04:28 CBC w/ auto diff 2023 024 [facility], [address] [place] [address], [id number], 08/24/2024 12:37:15 PSA, serum or plasma 2023 024 [facility], [address] [place] [address], [id number], 08/24/2024 13:15:27 lipid panel, blood 2023 024 [facility], [address] [place] [address], [id number], 08/24/2024 13:02:27 Referral None recorded. Procedures None recorded. Surgeries None recorded. Imaging US, echocardi ogram, transthor acic, complete, w/ color flow 2024 025 [facility], [address] [place], [id number], 10/05/2024 09:02:24 Medication Orders losartan 25 mg tablet 2024 025 [id number], [address] [place], [address], 12/03/2024 15:51:57 Patient TargetsNo targets recorded. Patient Instructions Encounter Date Encounter Id Patient Instructions Last Modified By Organization Details Last Modified Time 03/21/2024 [id number] prediabetes: car e instructions Not available 03/21/2024 14:03:15 thoracic aortic aneurysm: care instructions Not available 03/21/2024 14:03:15 insomnia: care instructions Not available 03/21/2024 14:08:15 high blood pressure: care instructions Not available 03/21/2024 14:03:16 learning about high blood pressure Not available 03/21/2024 14:03:15 06/26/2024 [id number] prediabetes: car e instructions Not available 06/26/2024 14:03:10 lumbar spinal stenosis: care instructions Not available 06/26/2024 14:03:10 insomnia: care instructions Not available 06/26/2024 14:03:10 09/21/2024 [id number] prediabetes: car e instructions Not available 09/21/2024 11:07:30 thoracic aortic aneurysm: care instructions Not available 09/21/2024 11:01:57 03/12/2025 [id number] prediabetes: car e instructions Not available 03/12/2025 14:25:41 thoracic aortic aneurysm: care instructions Not available 03/12/2025 14:25:41 Reason for Referral None Reported. Results Created Date Observation Date Name Description Value Unit Range Abnormal Flag Note LastModifiedBy Organization Detail LastModifiedTime 10/10/19 25 10/09/2024 cardi ovasc ular funct ion evalu ation w/ tilt table , aric nuous ECG and inter mitte nt blood press ure monit oring No observ ation record ed. [facility] [address], [place], [address], 12/03/2024 15:42:37 11/14/19 25 11/13/2024 US, echoc ardio gram, trans thora cic, compl ete, w/ color flow No observ ation record ed. [facility] [address] [facility], [place], [address], 12/03/2024 15:42:37 Result Notes None recorded. Problems Name Problem SNOMED Code Status Onset Date Resolution Date Notes Provider Name and Address Organization Details Recorded Time [facility] hyperten carlos 92091257 [facility] Hypercho lesterol emia 47063318 Active 2017 [facility] 11:05:36 Impaired fasting glycemia 980517748 Active [facility] 5 11:05:36 Injury of brachial plexus 9930817 Active 2017 Saludcharles Romano [facility] 5 11:05:43 History of depressi on 309178838 Active [facility] 11:05:36 Anxiety 69110692 Active 2017 [facility] 5 11:05:36 Axillary hidraden itis suppurat francisca 933703557 Active 2018 [facility] 5 11:05:36 Radical prostate ctomy Active 2020 Lincoln Reyes, DO [address] [place] [address], [phone], [facility] 1 10:03:22 Myocardi al infarcti on [id number] Completed 202004/14/2021 Lincoln Reyes, DO [address] [place] [address], [address], [facility] 1 10:05:23 Steatoti c liver disease 560758681 [facility] 2022 [facility] 5 11:05:36 Nodule of lung 093706328 Active 2022 [facility] 5 11:05:36 Divertic ulosis of colon 082598316 Active 2022 [facility] 5 11:05:36 Aneurysm of thoracic aorta 675034465 Active 2022 Saludcharles Romano null, [facility] 5 11:05:36 Ischemic heart disease 172448100 Completed 202212/03/2024 Lincoln Reyes, DO [address] [place], [address], [facility] 5 15:49:55 Diarrhea 31879033 Active 2022 Saludcharles Romano null, [facility] 5 11:05:43 Left foot drop 02084458441 9105 Active 2022 Saludcharles wadsworth, [facility] 5 11:05:36 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 Salud wadsworth, [facility] 5 11:05:36 Spinal stenosis of lumbar region 39454014 Active 2023 Salud wadsworth, [facility] 5 11:05:36 Acute sciatica 549693867 Active 2023 Saludcharles wadsworth, [facility] 5 11:05:43 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 Procedures Surgical History Date Name Laterality Status Provider Name and Address Organization Details Recorded Time 8 [facility] Christianson [facility] 06/21/2018 08:44:33 Imaging Results None [...] A HALF TABLETS BY MOUTH ONCE DAILY 2024 active Not Available Not Available Not Avai lable trazodone 100 mg tablet TAKE ONE TABLET BY MOUTH EVERY DAY 06/26 completed Not Available Not Available Not Available losartan 25 mg tablet TAKE ONE TABLET BY MOUTH EVERY DAY active Not Available Not Available No t Available metoprolol tartrate 50 mg tablet TAKE ONE-HALF TABLET BY MOUTH TWICE A DAY 2024 active Not Available Not Available Not Avai lable diclofenac sodium 75 mg tablet,del ayed release [...] Not Available No t Available Fluad Quad 5754-8761( 65yr up)(PF) 60 mcg (15 mcg x [...] in Arterial blood by Pulse oximetry Systolic And Diastolic Provider Name and Address Organization Details Last Updated DateTime 5 179.07 cm 27.6 kg/m2 72070.5 1 g 87 /min 97 % 97 % 138/80 mm[Hg] Teri Dockery [facility] 5 10:43:13 Date Recorded Body height Body mass index (BMI) Body weight Heart rate Oxygen saturation Oxygen saturation in Arterial blood by Pulse oximetry Systolic And Diastolic Provider Name and Address Organization Details Last Updated DateTime 5 179.07 cm 27.4 kg/m2 32518.9 2 g 54 /min 97 % 97 % 132/80 mm[Hg] Teri Garza [facility] 5 15:25:12 Date Recorded Body height Body mass index (BMI) Body weight Heart rate Oxygen saturation Oxygen saturation in Arterial blood by Pulse oximetry Systolic And Diastolic Provider Name and Address Organization Details Last Updated DateTime 5 179.07 cm 26.7 kg/m2 33416.9 6 g 82 /min 98 % 98 % 120/80 mm[Hg] Teri Garza [facility] 5 13:58:29 Date Recorded Body height Body mass index (BMI) Body weight Heart rate Oxygen saturation Oxygen saturation in Arterial blood by Pulse oximetry Systolic And Diastolic Provider Name and Address Organization Details Last Updated DateTime 4 179.07 cm 26.2 kg/m2 84258.5 9 g 47 /min 96 % 96 % 140/80 mm[Hg] Teri Garza [facility] 4 13:50:13 Date Recorded Body height Body mass index (BMI) Body weight Heart rate Oxygen saturation Oxygen saturation in Arterial blood by Pulse oximetry Systolic And Diastolic Provider Name and Address Organization Details Last Updated DateTime 4 179.07 cm 27 kg/m2 96151.1 4 g 51 /min 97 % 97 % 136/82 mm[Hg] Reid White [facility] 4 13:38:15 Social History Question Answer Notes LastModified by Organizat ion Details LastModified Time Tobacco Smoking Status Former Smoker Quit 30+ years Ago Reid wadsworth [facility] 01/17/2024 15:20:39 What Was The Date Of Your Most Recent Tobacco Screening? 03/12/2025 [email or web address] Information not available 03/12/2025 Sex: Unknown Functional Status Question Answer Note [...] mcg/0.25mL dose 12/06/19 21 completed Not Available [facility] 09/09/2023 14:34:29 Pneumococcal conjugate PCV 13 06/10/20 16 completed Not Available [facility] 09/09/2023 14:34:29 Pneumococcal conjugate PCV20, polysaccharide PKO187 conjugate, adjuvant, PF 03/09/20 22 completed Not Available [facility] 09/09/2023 14:34:29 influenza, unspecified formulation 06/26/20 22 completed Not Available [facility] 09/09/2023 14:34:29 Influenza, split virus, quadrivalent, preservative 06/22/20 18 completed Not Available [facility] 09/09/2023 14:34:29 influenza, unspecified formulation 06/05/20 24 completed Lincoln Reyes, DO [address] [facility], [place], [address], [facility] 06/26/2024 13:52:08 Influenza, split virus, quadrivalent, preservative 06/04/20 19 completed Not Available [facility] 09/09/2023 14:34:29 Tdap 11/30/19 20 completed Not Available [facility] 09/09/2023 14:34:29 Influenza, split virus, quadrivalent, preservative 04/25/20 20 completed Not Available [facility] 09/09/2023 14:34:28 Influenza, split virus, quadrivalent, preservative 04/25/20 20 completed Not Available [facility] 09/09/2023 14:34:29 COVID-19, mRNA, LNP-S, PF, 100 mcg/0.5mL dose or 50 mcg/0.25mL dose 01/03/20 21 completed Not Available [facility] 09/09/2023 14:34:29 Past Encounters Encounter ID Performer Location Encounter Start Date Encounter Closed Date Diagnosis/Indication Diagnosis SNOMED-CT Code Diagnosis ICD10 Code Diagnosis IMO Codes Diagnosis Note [id number] [facility] [address] [facility] [address] [place] [address] 12/05/2017 13:38:24 12/05/2017 15:56:48 History of depression 826948006 Z86.59 feeling better on 30mg Impaired f asting glycemia 773010705 R73.01 lab work now reviewed reveals A1c of 5.7 doing well eating better careful w exercise has lab standing order Essential hypertension 36528710 I10 bp sl low Hypercholesterolemia 136 01076 E78.00 reviewed latest lab from last week doing great with low ldl and low trigh hdl is in 40's discussed diet and need exercise daily [id number] [facility] [address] [facility] [address] [address] 03/27/2018 14:35:15 03/27/2018 15:18:33 Impaired fasting glycemia 207205783 R73.01 lab work now reviewed reveals A1c of 5.7 doing well eating better careful w exercise has lab standing order Anxiety 88734194 F41.9 overall is doing ok and is doing a bit better Essential hypertension 86893764 I10 doing great and is ok for now Hypercholesterolemia 136 52190 E78.00 reviewed latest lab from last week doing great with low ldl and low trigh hdl is in 40's discussed diet and need exercise daily [id number] [facility] [address] [facility] [address] [address] 06/12/2018 11:30:12 06/12/2018 12:30:46 Impaired fasting glycemia 388401897 R73.01 lab work now reviewed reveals A1c of 5.7 doing well eating better careful w exercise has lab standing order Essential hypertension 17843506 I10 doing great and is ok for now will cont with metoprolol at 1/2 tab bid Anxiety 93845779 F41.9 overall is doing ok and is doing a bit better since passed and is still in mourning at times Hypercholesterolemia 136 60214 E78.00 reviewed latest lab from last week doing great with low ldl and low trigh hdl is in 40's discussed diet and need exercise daily [id number] [facility] [address] [facility],[place] [address] 09/13/2018 10:39:42 09/13/2018 12:06:15 Impaired fasting glycemia 330179341 R73.01 lab work now reviewed reveals A1c of 5.7 doing well eating better careful w exercise has lab standing order Essential hypertension 87379346 I10 doing great and is ok for now will cont with metoprolol at 1/2 tab bid Abdominal aortic aneurysm screening 691582827 Z13.6 Cellulitis of upper limb 637982283 L03.119 failed keflex will change to doxy [id number] [facility] [address] [facility],[place] [address] 10/10/2018 11:17:58 10/10/2018 11:53:43 Axillary hidradenitis suppurativa 543324769 L73.[id number] [facility] [address] [facility] [employer] [facility] [address] 11/15/2018 11:37:21 11/15/2018 12:51:03 Axillary hidradenitis suppurativa 275093088 L73.2 will restart doxy for 3 weeks as well as clindamyci n soultion 1% Essential hypertension 26165583 I10 doing great and is ok for now will cont with metoprolol at 1/2 [place] [id number] [facility] [address] [facility] [employer] [facility] [address] 12/04/2018 13:30:14 12/04/2018 14:23:12 Essential hypertension 64752260 I10 doing great and is ok for now will cont with metoprolol at 1/2 tab bid Impaired f asting glycemia 122870209 R73.01 lab work now reviewed reveals A1c of 5.7 doing well eating better careful w exercise has lab standing order Axillary h idradenitis suppurativa 407709932 L73.2 will finish doxy total 3 weeks as well as clindamyci n soultion 1% Ganglion c yst of left hand 4970992123 65634 M67.442 will treat conserv for now if really starts to hurt we will refer for removal [id number] Lincoln Reyes DO [facility] [address] [facility] [address],[facility] [place] [address] 03/06/2019 13:40:50 03/06/2019 14:37:35 Essential hypertension 79144589 I10 still doing great and is ok for now will cont with metoprolol at 1/2 tab bid History of depression 16 9166754 Z86.59 continues to feel better on 30mg Hypercholesterolemia 136 13399 E78.00 reviewed latest lab from last week doing great with low ldl and low trig hdl is in 40's discussed diet and need exercise daily Impaired f asting glycemia 138724400 R73.01 lab work now reviewed reveals A1c of 5.7 doing well eating better careful w exercise has lab standing order Axillary h idradenitis suppurativa 076152030 L73.2 has done ok over the last several months and is using the clinda bottle with good results Eczema 89773177 L30.9 has evid of pelling eczema type lesions [id number] Lincoln Reyes DO [facility] [address] [facility] [address] [place] [place] [address] 06/19/2019 13:16:42 06/19/2019 13:48:15 Essential hypertension 04295199 I10 still doing great and is ok for now will cont with metoprolol at 1/2 tab bid Impaired f asting glycemia 048935184 R73.01 lab work now reviewed reveals A1c of 5.7 doing well eating better careful w exercise has lab standing order Hypercholesterolemia 136 02179 E78.00 reviewed latest lab from last week doing great with low ldl at 130 and low trig hdl is in 40's discussed diet and need exercise daily Active or passive immunization 885276945 Z23 recc tdap shingles pneumovax Hepatitis C screening 41 9322270 Z11.59 will get next visit [id number] Lincoln Reyes DO [facility] [address] [facility] [address],[place] [address] [facility] [place] [place] [address] 09/11/2019 13:19:37 09/11/2019 13:56:23 Essential hypertension 71994339 I10 still doing great and is ok for now will cont with metoprolol at 1/2 tab bid Anxiety 02574433 F41.9 overall is doing ok and is doing a bit better since passed and is still in mourning at times Impaired f asting glycemia 914295732 R73.01 lab work now reviewed reveals A1c of 5.7 doing well eating better careful w exercise has lab standing order Hypercholesterolemia 136 78789 E78.00 reviewed latest lab from last week doing great with low ldl at 130 and low trig hdl is in 40's discussed diet and need exercise daily Pain of le ft hip joint 3196483780 63024 M25.552 xr first will get both to compare [id number] [facility] [address] [facility] [address],[email or web address] [address] 09/26/2019 08:51:49 09/26/2019 09:24:04 Trochanteric bursitis of left hip 0962795135 32630 M70.62 pt requests eval by dr sweet will refer Impaired f asting glycemia 823544296 R73.01 lab work now reviewed reveals A1c of 5.7 doing well eating better careful w exercise has lab standing order Hypercholesterolemia 136 98050 E78.00 reviewed latest lab from last week doing great with low ldl at 130 and low trig hdl is in 40's discussed diet and need exercise daily Essential hypertension 15648221 I10 still doing great and is ok for now will cont with metoprolol at 1/2 [place] [id number] [facility] [address] [facility] [address],[place] [address] 11/30/2019 10:16:13 11/30/2019 11:30:05 Essential hypertension 88944655 I10 still doing great and is ok for now will cont with metoprolol at 1/2 tab bid Impaired f asting glycemia 880863732 R73.01 lab work now reviewed reveals A1c of 5.7 doing well eating better careful w exercise has lab standing order Active or passive immunization 687506804 Z23 recc tdap shingles pneumovax Iliotibial band friction syndrome 477332060 M76.[id number] [facility] [address] [facility] [email or web address] [address] 12/14/2019 11:18:07 12/14/2019 11:59:08 Iliotibial band friction syndrome 128031402 M76.31 cont meds and will try doing some of the stretching of the I T band [id number] Lincoln Reyes DO [facility] [address] [facility] [address],[place] [address] 03/18/2020 13:31:34 03/18/2020 13:52:04 Essential hypertension 88404903 I10 still doing great and is ok for now will cont with metoprolol at 1/2 tab bid Anxiety 74125995 F41.9 overall is doing ok and is doing a bit better since passed and is still in mourning at times but overall is doing ok Impaired f asting glycemia 039050971 R73.01 lab work now reviewed reveals A1c of 5.8 was 5.7 doing well eating better careful w exercise has lab standing order History of depression 16 7392408 Z86.59 continues to feel better on 30mg no changes needed Hypercholesterolemia 136 88468 E78.00 reviewed latest lab from last week doing great with low ldl at 130 and low trig hdl is in 40's discussed diet and exercise daily and we will rechk his lab in may Lincoln Reyes DO [facility] [address] [facility] [address] [address] 06/20/2020 08:57:20 06/20/2020 09:41:37 Impaired fasting glycemia 600806290 R73.01 lab work now reviewed reveals A1c of 6.0 and prior was 5.8 was 5.7 doing well eating better careful w exercise has lab standing order Essential hypertension 29015757 I10 still doing great and is ok for now will cont with metoprolol at 1/2 tab bid [id number] Lincoln Reyes DO [facility] [address] [facility] [address],[place] [address] 09/24/2020 08:40:36 09/24/2020 10:40:35 Essential hypertension 16414259 I10 still doing great and is ok for now relates has gained about 5 lbs since covid states has not been walking the past month before that was riding bike will cont with metoprolol at 1/2 tab bid bp at home has been good yesterday was 125/69- 64 Impaired f asting glycemia 260102630 R73.01 lab work now reviewed reveals A1c of 6.1 and was 6.0 in late summer and prior was 5.8 was 5.7 doing well eating better careful w exercise has lab standing order Hypercholesterolemia 136 16148 E78.00 reviewed latest lab from last visit doing great with low ldl at 130 and low trig hdl is in 40's discussed diet and exercise daily and we will rechk his lab in the spring Anxiety 46368570 F41.9 overall is doing ok and is doing a bit better since passed and is still in mourning at times but overall is doing ok still having a prob with sleep [id number] Lincoln Reyes DO [facility] [address] [facility],[employer] [place] [address] 12/29/2020 08:14:11 12/29/2020 11:32:01 Impaired fasting glycemia 316053943 R73.01 lab work now reviewed reveals A1c of 6.1 and 6.1 and was 6.0 in late summer and prior was 5.8 was 5.7 doing well eating better careful w exercise has lab standing order Essential hypertension 58780296 I10 he still doing great and is ok for now relates has gained about 5 lbs since covid states has not been walking the past month before that was riding bike will cont with metoprolol at 1/2 tab bid bp at home has been good yesterday was 125/69- 64 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 we will try to treat conserv initially will use diclof gel he has at home [id number] Lincoln Reyes DO [facility] [address] [facility] [place] [address] 04/01/2021 09:11:49 04/01/2021 10:34:24 Essential hypertension 91330736 I10 he still doing great and is ok for now relates has lost 5 lbs since last appt states has been walking the past month before that was riding bike will cont with metoprolol at 1/2 tab bid bp at home has been good yesterday was 125/69- 64 Impaired f asting glycemia [id number] R73.01 lab work now reviewed reveals A1c of 6.4 and prior 6.1 and 6.1 and was 6.0 in late summer and prior was 5.8 was 5.7 doing well eating better careful w exercise has lab standing order Hypercholesterolemia 136 98226 E78.00 reviewed latest lab from last visit doing great with low ldl at 130 and low trig hdl is in 40's discussed diet and exercise daily and we will rechk his lab in the spring Nocturia 895320443 R35.[id number] [facility] [address] [facility],[place] [address] [facility] [place] [address] 04/14/2021 09:45:17 04/14/2021 10:23:30 Calcific coronary arteriosclerosis 13872765 I25.10 will be seeing cardiologi st but will change him over to rosuvastat in Aneurysm o f thoracic aorta 583322967 I71.2 we will have him see a cardiologi st as it has been years since last seen and dr storm was last dr Jerry lutz of lung [id number] R91.1 for june please [id number] [facility] [address] [facility],[place] [address] 08/10/2021 08:25:11 08/10/2021 16:31:07 Essential hypertension 91812459 I10 he still doing great and is ok for now relates has lost 5 lbs since last appt states has been walking the past month before that was riding bike will cont with metoprolol at 1/2 tab bid bp at home has been good yesterday was 125/69- 64 Impaired f asting glycemia 064531770 R73.01 lab work now reviewed reveals A1c of 6.2 now 6.4 and prior 6.1 and 6.1 and was 6.0 in late summer and prior was 5.8 was 5.7 doing well eating better careful w exercise has lab standing order Hypercholesterolemia 136 92846 E78.00 reviewed latest lab from last visit doing great with low ldl at 93 and low trig at 93 hdl is in 46 discussed diet and exercise daily and we will rechk his lab in the spring [id number] Lincoln Reyes DO [facility] [address] [facility],[address] [facility] [place] [address] 10/26/2021 14:59:58 10/27/2021 12:25:03 Impaired fasting glycemia 838689737 R73.01 lab work now reviewed reveals A1c of 6.5 this winter was 6.2 now 6.4 and prior 6.1 and 6.1 and was 6.0 in late summer and prior was 5.8 was 5.7 doing well eating better careful w exercise has lab standing order Hypercholesterolemia 136 40200 E78.00 reviewed latest lab from last visit doing great with low ldl at 93 and low trig at 93 hdl is in 46 discussed diet and exercise daily and we will rechk his lab in the spring Anxiety 57777559 F41.9 overall is doing ok and is doing a bit better since passed and is still in mourning at times but overall is doing ok still having a prob with sleep Essential hypertension 48607100 I10 he still doing great and is ok for now relates has lost 5 lbs since last appt states has been walking the past month before that was riding bike will cont with metoprolol at 1/2 tab bid bp at home has been good yesterday was 125/69- 64 Aneurysm o f thoracic aorta 245875981 I71.2 we will have him see a cardiologi st as it has been years since [place] [id number] Lincoln Reyes, [facility] [address] [facility],[address] [facility] [place] [address] 01/15/2022 10:22:51 01/15/2022 14:22:02 Impaired fasting glycemia 963827769 R73.01 lab work now reviewed reveals A1c of 6.3 and was 6.5 this winter was 6.2 now 6.4 and prior 6.1 and 6.1 and was 6.0 in late summer and prior was 5.8 was 5.7 doing well eating better careful w exercise has lab standing order Essential hypertension 10485598 I10 he still doing great and is ok for now relates has lost 5 lbs since last appt states has been walking the past month before that was riding bike will cont with metoprolol at 1/2 tab bid bp at home has been good yesterday was 125/69- 64 Active or passive immunization 745891785 Z23 patient advised of vaccines that are due (pneu 23) [id number] [facility] [address] [facility],[place] [address] 04/21/2022 09:54:37 04/21/2022 10:41:37 Impaired fasting glycemia 939685612 R73.01 lab work now reviewed reveals A1c of 6.1 and is doing great he was 6.3 and was 6.5 this winter was 6.2 now 6.4 and prior 6.1 and 6.1 and was 6.0 in late summer and prior was 5.8 was 5.7 doing well eating better careful w exercise has lab standing order Hypercholesterolemia 136 46405 E78.00 reviewed latest lab from last visit doing great with low ldl at 93 and low trig at 93 hdl is in 46 discussed diet and exercise daily and we will rechk his lab in the spring Essential hypertension 10788656 I10 he still doing great and is ok for now relates has lost 5 lbs since last appt states has been walking the past month before that was riding bike will cont with metoprolol at 1/2 tab bid bp at home has been good yesterday was 125/69- 64 Active or passive immunization 800867920 Z23 patient advised he is due for shingles & pneu [id number] [facility] [address] [facility],[place] [address] 07/16/2022 09:31:40 07/16/2022 12:40:33 Impaired fasting glycemia 000845241 R73.01 lab work now reviewed reveals A1c of 6.1 and is doing great he was 6.3 and was 6.5 this winter was 6.2 now 6.4 and prior 6.1 and 6.1 and was 6.0 in late summer and prior was 5.8 was 5.7 doing well eating better careful w exercise has lab standing order Hypercholesterolemia 136 64237 E78.00 lab from last visit doing great with low ldl at 93 and low trig at 93 hdl is in 46 discussed diet and exercise daily and we will rechk his lab in sep Essential hypertension 55204451 I10 bp here is sl elevated but i am not inclined to treat just one readingsta sunshine has been walking the past month before that was riding bike will cont with metoprolol at 1/2 tab bid tolerates bp at home has been good yesterday was 125/69- 64 Active or passive immunization 566450205 Z23 patient advised he is due for shingles & pneu 23 [id number] Lincoln Reyes, [facility] [address] [facility],[place] [address] 10/19/2022 14:53:45 10/19/2022 16:21:22 Essential hypertension 19697179 I10 bp here is sl elevated but i am not inclined to treat just one readingsta sunshine has been walking the past month before that was riding bike will cont with metoprolol at 1/2 tab bid tolerates bp at home has been good yesterday was 125/69- 64 Hypercholesterolemia 136 25600 E78.00 lab from last visit doing great with low ldl at 93 and low trig at 93 hdl is in 46 discussed diet and exercise daily and we will rechk his lab in sep Impaired f asting glycemia 843658518 R73.01 lab work now reviewed reveals A1c of 6.2 was 6.1 and is doing great he was 6.3 and was 6.5 this winter was 6.2 now 6.4 and prior 6.1eating well and stays activehas lab standing order [id number] [facility] [address] [facility],[place] [address] 01/12/2023 13:47:47 01/12/2023 15:17:26 Aneurysm of thoracic aorta 293512425 I71.20 will be seeing cardiac surgeon to rechk in next year 2024 Essential hypertension 67215702 I10 bp here is sl elevated but i am not inclined to treat just one readingsta sunshine has been walking the past month before that was riding bike will cont with metoprolol at 1/2 tab bid tolerates bp at home has been good yesterday was 125/69- 64 Impaired f asting glycemia 783462485 R73.01 he continues to do well lab work now reviewed reveals A1c of 6.0 was 6.2 was 6.1 and is doing great he was 6.3 and was 6.5 this winter was 6.2 now 6.4 and prior 6.1eating well and stays activehas lab standing order Ischemic h eart disease 668180672 I25.[id number] [facility] [address] [facility] [address],[place] [address] 04/18/2023 10:45:26 04/18/2023 11:47:39 Aneurysm of thoracic aorta 085676334 I71.20 will be seeing cardiac surgeon to rechk in next year 2024 Essential hypertension 75808688 I10 bp here is sl elevated but i am not inclined to treat just one readingsta sunshine has been walking the past month before that was riding bike will cont with metoprolol at 1/2 tab bid tolerates bp at home has been good yesterday was 125/69- 64 Hypercholesterolemia 136 56893 E78.00 lab from last visit doing great with low ldl at 93 and low trig at 93 hdl is in 46 discussed diet and exercise daily and we will rechk his lab in sep Ischemic h eart disease 148231304 I25.9 we will refer to dr shen for discussion [id number] Lincoln Reyes [facility] [address] [facility],[place] [address] 08/10/2023 14:00:53 08/10/2023 16:30:53 Essential hypertension 23704467 I10 bp here is sl elevated but i am not inclined to treat just one readingsta sunshine has been walking the past month before that was riding bike will cont with metoprolol at 1/2 tab bid tolerates bp at home has been good yesterday was 125/69- 64 Hypercholesterolemia 136 96896 E78.00 lab from last visit doing great with low ldl at 93 and low trig at 93 hdl is in 46 discussed diet and exercise daily and we will rechk his lab in sep Ischemic h eart disease 580515989 I25.9 we will refer to dr shen for discussion [id number] Lincoln Reyes [facility] [address] [facility] [address],[place] [facility] [address] 08/19/2023 08:20:07 08/19/2023 14:29:08 Essential hypertension 26154497 I10 bp here is sl elevated but i am not inclined to treat just one readingsta sunshine has been walking the past month before that was riding bike will cont with metoprolol at 1/2 tab bid tolerates bp at home has been good yesterday was 125/69- 64 Hypercholesterolemia 136 23978 E78.00 lab from last visit doing great with low ldl at 93 and low trig at 93 hdl is in 46 discussed diet and exercise daily and we will rechk his lab in sep Diarrhea 31492735 R19.7 going to eat light and only clear liquids he has been drinking oj Patient will monitor blood pressure and report if unable to control or if they develop new symptoms.ira e will start him on metronidaz ole and will hold the rosuvastat in and ezetimibe Left foot drop [id number] 1 61227 M21.372 [id number] Lincoln Reyes, [facility] [address] [facility],[place] [address] 11/22/2023 13:57:16 11/22/2023 14:49:59 Essential hypertension 11211286 I10 bp here is sl elevated but i am not inclined to treat just one readingsta sunshine has been walking the past month before that was riding bike will cont with metoprolol at 1/2 tab bid tolerates bp at home has been good yesterday was 125/69- 64 Hypercholesterolemia 136 36946 E78.00 lab from last visit doing great with low ldl at 93 and low trig at 93 hdl is in 46 discussed diet and exercise daily and we will rechk his lab in sep Ischemic h eart disease 189780733 I25.9 we will refer to dr shen for discussion 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 [address] [facility],[place] [address] 01/17/2024 14:55:38 01/17/2024 15:55:21 Aneurysm of thoracic aorta 540814505 I71.20 will be seeing cardiac surgeon to rechk in next year 2024 Spinal vanessa nosis of lumbar region 00637984 M48.061 noted that he is struggling at times was due to get inj into his back but [facility] at the time of the appt told him they couldnt do it and also he had to pay 500 for the cortisone Depression screening 171 057643 Z13.31 borderline Essential hypertension 82304289 I10 bp here is sl elevated but i am not inclined to treat just one readingsta sunshine has been walking the past month before that was riding bike will cont with metoprolol at 1/2 tab bid tolerates bp at home has been good yesterday was 125/69- 64 Impaired f asting glycemia 790275899 R73.01 he continues to do well 6.1 lab work now reviewed reveals A1c of 6.0 was 6.2 was 6.1 and is doing great he was 6.3 and was 6.5 this winter was 6.2 now 6.4 and prior 6.1eating well and stays activehas lab standing order Pain of ri ght hip joint 1389045248 79078 M25.551 [id number] Lincoln Reyes DO [facility] [address] [facility] [address],[place] [facility] [place] [address] 03/21/2024 13:44:23 03/21/2024 16:49:52 Depression screening 861473763 Z13.31 borderline Essential hypertension 22252221 I10 bp here is sl elevated but i am not inclined to treat just one readingsta sunshine has been walking the past month before that was riding bike will cont with metoprolol at 1/2 tab bid tolerates bp at home has been good yesterday was 125/69- 64 Impaired f asting glycemia 074250862 R73.01 he continues to do well 6.1 lab work now reviewed reveals A1c of 6.0 was 6.2 was 6.1 and is doing great he was 6.3 and was 6.5 this winter was 6.2 now 6.4 and prior 6.1eating well and stays activehas lab standing order Ischemic h eart disease 251565706 I25.9 we will refer to dr shen for discussion Aneurysm o f thoracic aorta 829131295 I71.20 will be seeing cardiac surgeon to rechk in next 2024 Spinal vanessa nosis of lumbar region 94762374 M48.061 noted that he is struggling at times was due to get inj into his back but [facility] at the time of the appt told him they couldnt do it and also he had to pay 500 for the cortisone Insomnia G47.0 9 will try holding the traz to see if he needs it any more [id number] Lincoln Reyes [facility] [address] [facility],[place] [address] 06/26/2024 13:33:45 06/26/2024 14:25:41 Impaired fasting glycemia 212605855 R73.01 he continues to do well 6.1 lab work now reviewed reveals A1c of 6.0 was 6.2 was 6.1 and is doing great he was 6.3 and was 6.5 this winter was 6.2 now 6.4 and prior 6.1eating well and stays activehas lab standing order Hypercholesterolemia 136 04581 E78.00 lab from last visit doing great with low ldl at 93 and low trig at 93 hdl is in 46 discussed diet and exercise daily and we will rechk his lab in sep Insomnia G47.0 9 will try holding the traz to see if he needs it any more Ischemic h eart disease 716509211 I25.9 we will refer to dr shen for discussion Spinal vanessa nosis of lumbar region 62457778 M48.061 noted that he is struggling at times but is dealing with it [id number] Lincoln Reyes DO [facility] [address] [facility],[place] [address] 09/21/2024 10:37:34 09/21/2024 11:13:38 Essential hypertension 60256438 I10 bp here is doing well and at homestates has been walking the past month before that was riding bike will cont with metoprolol at 1/2 tab bid tolerates bp at home has been good yesterday was 125/69- 64 Aneurysm o f thoracic aorta 699407897 I71.20 will be seeing cardiac surgeon to rechk in next 2024needs echo done Ischemic h eart disease 051021318 I25.9 will be seeing cardio after he gets a nuclear perfusion scan 10-09-24 Infection of sebaceous cyst 009789324 L72.3 resolved now doing fine Impaired f asting glycemia 662721266 R73.01 he continues to do well 6.1 lab work now reviewed reveals A1c of 6.0 was 6.2 was 6.1 and is doing great he was 6.3 and was 6.5 this winter was 6.2 now 6.4 and prior 6.1eating well and stays activehas lab standing order [id number] Lincoln Reyes DO [facility] Medicine [address],[place] [address] 12/03/2024 15:20:03 12/03/2024 16:00:54 Essential hypertension 90534048 I10 bp here is doing well and at homestates has been walking the past month before that was riding bike will cont with metoprolol at 1/2 tab bid tolerates bp at home has been good yesterday was 125/69- 64 Hypercholesterolemia 136 09534 E78.00 lab from last visit doing great with low ldl at 93 and low trig at 93 hdl is in 46 discussed diet and exercise daily and we will rechk his lab in sep Impaired f asting glycemia 050257195 R73.01 he continues to do well 6.4 nomajor issues lab work now reviewed reveals A1c of 6.0 was 6.2 was 6.1 and is doing great he was 6.3 and was 6.5 this winter was 6.2 now 6.4 and prior 6.1eating well and stays activehas lab standing order Depression screening 171 504029 Z13.31 borderline Aneurysm o f thoracic aorta 830277169 I71.[address] and did great had recent nuclear scan with verbal report as excellentn eeds echo done [id number] DO Na[facility] [address] [facility] [address],[place] [address] 03/12/2025 13:48:28 03/12/2025 14:46:31 Depression screening 106469693 Z13.31 borderline Essential hypertension 43917128 I10 bp here is doing well and at homestates has been walking the past month before that was riding bike will cont with metoprolol at 1/2 tab bid tolerates bp at home has been good yesterday was 125/69- 64 Hypercholesterolemia 136 34174 E78.00 lab from last visit doing great with low ldl at 93 and low trig at 93 hdl is in 46 discussed diet and exercise daily and we will rechk his lab in sep Aneurysm o f thoracic aorta 633916171 I71.20 seen by cardiologi and tyrell mcfarland had recent nuclear scan with verbal report as excellentn eeds echo done Impaired f asting glycemia 209355561 R73.01 he continues to do well 6.3 6.4 no major issues lab work now reviewed reveals A1c of 6.0 was 6.2 was 6.1 and is doing great he was 6.3 and was 6.5 this winter was 6.2 now 6.4 and prior 6.1eating well and stays activehas lab standing order Health Concerns Section Related Observation LastModified by Organization Detai ls LastModified Time None Recorded Concern Status LastModified by Organization Details LastModified Time None Recorded Advance Directives Directive None Recorded Payers Insurance Date Sequence Insurance Name Policy Number Policy Pearson Covered Member ID Pearson Member ID Guarantor Name 03/09/2025 2 [place] [id number] Nikolay Arzola [id number] Nikolay Arzola 03/09/2025 1 [place] [employer] Nikolay Lilly Dariusz [id number] Nikolay Arzola Notes Date Note Type Note Provider Name and Address Organization Details Recorded Time 03/21/20 24 text/htm l Care Management - HypertensionReported by PatientHPIFor self care, patient reportsnot under emotional stress. For severity, patient reportssymptoms are improvinganddoes not interfere with daily activities. For associated symptoms, patient reportsno dizziness,no lightheadedness,no chest pain,no shortness of breath,no palpitations,no edema,no calf muscle cramps,no blurred vision,no confusion,no headaches, andno fatigue.ROS as noted in the HPI here for rechrony states his back is bad if he rides his bike it hurts to get on and off but is ok [id number] is 6.1 relates had a hip lizzie inj and the pain there is gone but he is still limping and this has affecting his walking and that is his back Lincoln Reyes DO [address] [place], [address], [facility] 03/21/2024 14:08:44 06/26/20 24 text/htm l ROS as noted in the HPI here for rechrony and is feeling well overall'back is still sore but is able to deal with occ alleveno cp no sobwalking a distance causes the radiculopathy cane does help Lincoln Reyes DO [address] [place], [address], [facility] 06/26/2024 14:04:56 09/21/19 25 text/htm l Care Management - DiabetesReported by PatientIFor self care, patient reportsseeing eye doctor yearly for dilated eye exam,checking feet regularly,normal range of home blood sugars (in the low 100s), andno side effects from medications. For associated symptoms, patient reportssymptoms are usually well controlled,no fatigue,no dizziness,no excessive sweating,no headaches,no confusion,no increased thirst,no increased appetite,no increased urination,no blurred vision,no numbness of feet, andno calluses on feet. Care Management - HypertensionReported by PatientIFor self care, patient reportsnot under emotional stress. For severity, patient reportssymptoms are improvinganddoes not interfere with daily activities. For associated symptoms, patient reportsno dizziness,no lightheadedness,no chest pain,no shortness of breath,no palpitations,no edema,no calf muscle cramps,no blurred vision,no confusion,no headaches, andno fatigue.ROS as noted in the HPI here for rechk and is doing okhad a blocked gland in his left axillaseen at given cephalexin and this resolved Lincoln Reyes, DO [address] [place], [address], [facility] 09/21/2024 11:08:10 12/04/19 25 text/htm l Care Management - HypertensionReported by PatientHPIFor self care, patient reportsnot under emotional stress. For severity, patient reportssymptoms are improvinganddoes not interfere with daily activities. For associated symptoms, patient reportsno dizziness,no lightheadedness,no chest pain,no shortness of breath,no palpitations,no edema,no calf muscle cramps,no blurred vision,no confusion,no headaches, andno fatigue. Care Management - DiabetesReported by PatientIFor self care, patient reportsseeing eye doctor yearly for dilated eye exam,checking feet regularly,normal range of home blood sugars (in the low 100s), andno side effects from medications. For associated symptoms, patient reportssymptoms are usually well controlled,no fatigue,no dizziness,no excessive sweating,no headaches,no confusion,no increased thirst,no increased appetite,no increased urination,no blurred vision,no numbness of feet, andno calluses on feet. Care Management - HyperlipidemiaReported by PatientIFor control, patient reportsusually well controlled,improving, andat goal. For complications, patient reportsno coronary artery disease,no heart attack,no cardiovascular disease,no pancreatitis, andno stroke.ROS as noted in the HPI here for rechk and is doing ok had a recent nuclear scan Lincoln Reyes, DO [address] [place], [address], [facility] 12/03/2024 15:53:49 03/12/20 25 text/htm l Care Management - HypertensionReported by PatientIFor self care, patient reportsnot under emotional stress. For severity, patient reportssymptoms are improvinganddoes not interfere with daily activities. For associated symptoms, patient reportsno dizziness,no lightheadedness,no chest pain,no shortness of breath,no palpitations,no edema,no calf muscle cramps,no blurred vision,no confusion,no headaches, andno fatigue.ROS as noted in the HPI here for rechk and is not having any problems Lincoln Reyes, DO [address] [facility], [place], [place], [id number], [facility] Internal [facility] 03/12/2025 14:26:53
--- OUTSIDE RECORDS SUMMARY | 2025-05-24 07:50 | XMS_ITS | Encounter Summary ---
Author Organization [facility] Address [address] [place] [address] Phone Care Team Providers Care Wildlife Science Professor Name Role Phone [place] Weiss DO Primary Care Provider [phone] Encounter Details Date Type Department Care Team (Late st Contact Info) Description 02/09/2023 Procedure Pass [facility] [address] [place] [address] Social History Tobacco Use Types Packs/Day Years [...] with a working camera? Not on file Sex and Gender Information Value Date Recorded [...] documented as of this encounter Care Teams Wildlife Science Professor Relationship Specialty Start Date End Date RhysLincoln castanon [email or web address] PCP - General Internal Medicine 07/11/17 documented as of this encounter Additional Source Comments The information contained in this document represents components of the legal health record. It is not the complete legal health record.[facility]
--- OUTSIDE RECORDS SUMMARY | 2025-05-24 07:50 | XMS_ITS | Clinical Summary ---
Author Organization [facility] Address [address] [place], [place] [id number] Phone Care Team Providers Care Resilient Tile Installer Name Role Phone [place] Weiss DO Primary Care Provider Allergies No known active allergies Medications aspirin 81 mg chewable tablet Take 81 mg by mouth daily. Active metoprolol tartrate (LOPRESSOR) 25 MG tablet Take 25 mg by mouth 2 (two) times a day. Active MULTIVITAMIN ORAL Take by mouth. Active citalopram (CELEXA) 20 MG tablet Take 1.5 tablets by mouth every morning. 12/15/2023 Active ARTHRITIS PAIN, DICLOFENAC, 1 % Gel USE 1-3 GRAMS AND APPLY TO AFFECTED AREA 3-4 TIMES PER DAY 10/26/2023 Active rosuvastatin (CRESTOR) 40 MG tablet Take 1 tablet by mouth daily. Active losartan (COZAAR) 25 MG tablet Take 0.5 tablets (12.5 mg total) by mouth daily. 90 tablet 10/24/2024 Active Active Problems No known active problems Social History Tobacco Use Types Packs/Day Years Used Date Smoking Tobacco: Former Cigarettes Q uit: 06/12/1991 Smokeless Tobacco: Never Tobacco Cessation:Counseling Given: Not Answered Alcohol Use Standard Drinks/Week Comments Yes 0 [...] Orientation Straight 11/06/2024 5: 14 PM EDT Last Filed Vital Signs Vital Sign Reading Time Taken Comments Blood Pressure 140/76 10/24/2024 10:14 AM EST Pulse 67 10/24/2024 10:14 AM EST Temperature 36.6 C (97.9 F) 08/24/2024 1:15 PM EST Respiratory Rate 17 08/24/2024 1:15 PM EST Oxygen Saturation 95% 10/24/2024 10:14 AM EST Inhaled Oxygen Concentration - - Weight 86.6 kg (191 lb) 10/24/2024 10:14 AM EST Height 178.5 cm (5' 10.28 ) 10/24/2024 10:14 AM EST Body Mass Index 27.19 10/24/2024 10:14 AM EST Plan of Treatment Health Maintenance Due Date Last Done Comments DEPRESSION SCREENING 1958 HEPATITIS C SCREENING 1964 ZOSTER VACCINES (1 of 2) 1996 RSV VACCINE (1 - 1-dose 75+ series) 2021 INFLUENZA VACCINE (#1) 2025 , 05/24/2023, 06/26/2022, Additional history exists COVID-19 VACCINE ( season) 2025 06/09/2023, 08/12/2022, 07/30/2021, Additional history exists CREATININE LEVEL 08/24/2025 08/24/2024, 03/2023, 09/29/2022, Additional history exists POTASSIUM LEVEL 08/24/2025 08/24/2024, 03/2023, 09/29/2022, Additional history exists SMOKING Hx and SMOKELESS TOBACCO SCREENING 09/20/2025 09/20/2024 Adult Td,Tdap Booster 11/29/2029 11/30/2019 PNEUMOCOCCAL VACCINES (50+ years) Completed 03/09/2022, 06/10/2016 HEPATITIS A VACCINES Aged Out No long er eligible based on patient's age to complete this topic HIB VACCINES Aged Out No longer eligi ble based on patient's age to complete this topic MENINGOCOCCAL VACCINES (ACWY) Aged Out No longer eligible based on patient's age to complete this topic MENINGOCOCCAL VACCINES (B) Aged Out N o longer eligible based on patient's age to complete this topic Medical Devices Not on file Procedures Procedure Name Priority Date/Time Associated Diagnosis Comments COMPREHENSIVE METABOLIC PANEL Routine 08/24/2024 8:42 AM EST Pure hypercholesterolemi a Chronic ischemic heart disease, unspecified from Last 3 Months or Most Recently Relevant to Health Maintenance Results * (ABNORMAL) Comprehensive metabolic panel (08/24/2024 8:42 AM EST) SODIUM 141 133 - 146 mmol/L [facility] POTASSIUM 4.6 3.3 - 5.1 mmol/L [facility] CHLORIDE 103 96 - 108 mmol/L [facility] CO2 29 21 - 35 mmol/L [facility] BUN 17 6 - 19 mg/dL [facility] CREATININE 0.70 0.5 - 1.5 mg/dL [facility] GLUCOSE 166(H) 70 - 99 mg/dL [facility] ALBUMIN 4.2 3.9 - 4.8 g/dL [facility] TOTAL PROTEIN 6.4(L) 6.5 - 8.0 g/dL [facility] CALCIUM 9.0 8.4 - 10.3 mg/dL [facility] ALKALINE PHOSPHATASE 55 39 - 117 U/L [facility] TOTAL BILIRUBIN 0.5 0.0 - 1.2 mg/dL [facility] AST 34 0 - 37 U/L [facility] ALT 37 0 - 40 U/L [facility] GLOBULIN 2.2 1 - 4.8 g/dL [facility] EGFR 95 >59 mL/min/1.7 3m2 [facility] Comment:Estimated glomerular filtration rate calculated using the CKD-EPI refit equation. ANION GAP 14 10 - 20 mmol/L [facility] Blood 08/24/2024 8:42 AM EST 08/24/2024 8:45 AM EST us [place] Weiss DO LAB BLOOD ORDERABLES Final Resul t [facility] [address] [place] [address] from Last 3 Months or Most Recently Relevant to Health Maintenance Insurance MEDICARE PART A & B [place] [employer] SUPPLEMENT MEDICARE PART A & B [email or web address] MEDEX SUPPLEMENT MEDICARE PART A & B [email or web address] MEDEX SUPPLEMENT MEDICARE PART A & B [email or web address] MEDEX SUPPLEMENT MEDICARE PART A & B [email or web address] MEDEX SUPPLEMENT MEDICARE PART A & B [facility] MEDEX SUPPLEMENT MEDICARE PART A & B [employer] MEDEX SUPPLEMENT MEDICARE PART A & B [email or web address] MEDEX SUPPLEMENT MEDICARE PART A & B [employer] [place] MEDEX SUPPLEMENT Care Teams Resilient Tile Installer Relationship Specialty Start Date End Date [place] Weiss DO [email or web address] PCP - General Internal Medicine 07/11/17 Additional Source Comments The information contained in this document represents components of the legal health record. It is not the complete legal health record.[facility]
--- OUTSIDE RECORDS SUMMARY | 2025-05-24 07:50 | XMS_ITS | Encounter Summary ---
Author Organization [facility] Address [address] [place] [address] Phone Care Team Providers Care Cook Boat Name Role Phone [place] Weiss DO Primary Care Provider [phone] Encounter Details Date Type Department Care Team (Late st Contact Info) Description 10/05/2024 Procedure Pass [facility] [address] [place] [address] Social History Tobacco Use Types Packs/Day Years [...] Diagnoses Not on filedocumented in this encounter Care Teams Cook Boat Relationship Specialty Start Date End Date [place] Weiss DO [email or web address] PCP - General Internal Medicine 07/11/17 documented as of this encounter Additional Source Comments The information contained in this document represents components of the legal health record. It is not the complete legal health record.[facility]
--- OUTSIDE RECORDS SUMMARY | 2025-05-24 07:50 | XMS_ITS | Encounter Summary ---
Author Organization [facility] Address [address] [place] [address] Phone Care Team Providers Care Sheet Sewer Name Role Phone [place] Weiss DO Primary Care Provider [phone] Encounter Details Date Type Department Care Team (Late st Contact Info) Description 08/23/2017 Transcribe Orders [facility] [address] [place] [address] [place] Weiss DO [address] [facility] [place] [address] [email or web address] Essential hypertension, benign (Primary Dx) Social History Tobacco Use Types [...] documented as of this encounter Results * Microalbumin/creatinine ratio, random urine (08/23/2017 7:51 AM EST) URINE MICROALBUMIN 0.3 0 - 2.3 mg/dL [facility] URINE CREATININE 94 mg/dL STRIPPER MACHINE OPERATOR [facility] MICROALB/CRE RATIO NOT CALCULATED 0 - 20 mg/g Cre [facility] Comment:due to Microalbumin <1.2 Urine (Urine) 08/23/2017 7:5 1 AM EST 08/23/2017 8:01 AM EST us Lincoln A Bigda DO URINE ORDERABLES Final Result Performing Organization Address [facility]/ZIP Co de Phone Number [address] [address] * Hemoglobin A1c (08/23/2017 7:51 AM EST) HEMOGLOBIN A1C 5.5 4.3 - 5.8 % [facility] Blood 08/23/2017 7:51 AM EST 08/23/2017 8:01 AM EST us Lincoln Remington Isela DO LAB BLOOD ORDERABLES Final Resul t Performing Organization Address [facility] Co de Phone Number [address] [phone] documented in this encounter Visit Diagnoses Diagnosis Essential hypertension, benign- Primary documented in this encounter Additional Health Concerns Infection Onset Date Last Indicated Resolved Time CoV-Risk 08/05/2023 08/05/2023 08/05/2023 1:15 AM EST COVID-19 08/05/2023 08/05/2023 08/26/2023 1:23 AM EST documented as of this encounter Care Teams Sheet Sewer Relationship Specialty Start Date End Date [place] Weiss DO [email or web address] PCP - General Internal Medicine 07/11/17 documented as of this encounter Additional Source Comments The information contained in this document represents components of the legal health record. It is not the complete legal health record.[facility]
--- OUTSIDE RECORDS SUMMARY | 2025-05-24 07:50 | XMS_ITS | Encounter Summary ---
Author Organization [facility] Address [address] [place] [address] Phone Care Team Providers Care Roller Printing Supervisor Name Role Phone [place] Weiss DO Primary Care Provider [phone] Encounter Details Date Type Department Care Team (Latest Contact Info) Description 02/08/2024 Ancillary Orders [address] [id number] Aby Pagan MD [address] [place] [address] Orthopedics & Sports Medicine, [place] [address] [email or web address] Osteoarthritis of right hip, unspecified osteoarthritis type (Primary Dx) Social History Tobacco Use Types [...] as of this encounter Plan of Treatment Pending Results Name Type Priority Associated Diagnoses Date /Time FL Guidance Needle Placement Non-Spine Imaging Routine Osteoarthritis of right hip, unspecified osteoarthritis type 02/14/2024 10:25 AM EDT Scheduled Orders Name Type Priority Associated Diagnoses Orde r Schedule FL Guidance Needle Placement Non-Spine Imaging Routine Osteoarthritis of right hip, unspecified osteoarthritis type 1 Occurrences starting 02/08/2024 until 05/10/2024 documented as of this encounter Visit Diagnoses Diagnosis Osteoarthritis of right hip, unspecified osteoarthritis type- Primary documented in this encounter Care Teams Roller Printing Supervisor Relationship Specialty Start Date End Date [place] Weiss DO [email or web address] PCP - General Internal Medicine 07/11/17 documented as of this encounter Additional Source Comments The information contained in this document represents components of the legal health record. It is not the complete legal health record.[facility]
--- OUTSIDE RECORDS SUMMARY | 2025-05-24 07:50 | XMS_ITS | Encounter Summary ---
Author Organization [facility] Address [address] [place] [address] [address] [place] [address] Phone Care Team Providers Care Per Diem Physical Therapist Assistant Name Role Phone [place] Weiss DO Primary Care Provider [phone] Encounter Details Date Type Department Care Team ([facility] st Contact Info) Description 04/18/2023 Transcribe Orders [facility] [address] [facility] [address] [place] [address] [place] Weiss DO [address] [facility] [place] [address] [place] [address] [email or web address] Social History Tobacco Use Types Packs/Day Years [...] documented as of this encounter Care Teams Per Diem Physical Therapist Assistant Relationship Specialty Start Date End Date [place] Weiss DO [email or web address] PCP - General Internal Medicine 07/11/17 documented as of this encounter Additional Source Comments The information contained in this document represents components of the legal health record. It is not the complete legal health record.[facility]
--- OUTSIDE RECORDS SUMMARY | 2025-05-24 07:50 | XMS_ITS | Encounter Summary ---
Author Organization [facility] Address [address] [place] [address] Phone Care Team Providers Care Smooth Stucco Resurfacer Name Role Phone [place] Weiss Primary Care Provider [phone] Reason for Referral * Outpatient Procedure - Closed Specialty Diagnoses / Procedures Referred By Contlico t Referred To Contact Diagnoses Chronic ischemic heart disease, unspecified Procedures Adult Echo TTE Margaux Morelos PA [address] [facility] [place] [address] Phone: tel: fax: Referral ID Status Reason Start Date Expiration Date Visits Re quested Visits Authorized [id number] Closed 02/09/2023 1 1 Encounter Details Date Type Department Care Team (Latest Contact Info) Description 02/09/2023 Transcribe Orders Virtual Department [address] [place] [address] Margaux Morelos PA [address] [place] [id number] Chronic ischemic heart disease, unspecified (Primary Dx) Social History Tobacco Use Types [...] documented as of this encounter Results * TTE COMPREHENSIVE (03/03/2023 1:50 PM EDT) Body Surface Area 2.05 m2 Height 180 cm Weight 85 kg Systolic BP 104 mmHg Diastolic BP 61 mmHg Left Atrium Dimension Anterior-Posterior 44 15 - 40 mm Aortic Valve Peak Velocity 110.0 cm/s Aortic Valve Peak Gradient 5 mmHg Aortic Valve Mean Gradient 3 mmHg Aortic Valve Time Velocity Integral 256 mm Aortic Sinus Diameter 42 mm Ascending Aorta Diameter 36 mm Inferior Vena Cava Diameter 15 0.0 - 21 mm Interventricular Septum Thickness 10 mm Left Ventricle Internal Diameter End Diastole 57 42 - 58 mm Left Ventricle Internal Diameter End Systole 37 25 - 40 mm Left Ventricular Outflow Tract Diameter 30.0 mm LVOT VTI REST 234 mm Left Ventricular Outflow Tract Velocity 0.9 m/s Left Ventricular Outflow Tract Gradient at Rest 3 mmHg Left Ventricular Posterior Wall Thickness 8 mm Ejection Fraction 45 50 - 75 Percent Mitral Valve A Wave Speed 81.9 cm/s Mitral Valve E Wave Speed 54.1 cm/s Right Ventricle Basal Diameter 39.3 25 - 41 mm Raw LV EF% 58 % Aortic Valve Sinus Index 1 20 20 - 32 mm Ascending Aorta Diameter 18 mm Aortic Sinus Index 20 mm Ascending Aorta Index 18 mm Left Atrial Volume 61 mL Left Atrial Volume Index 29.76 mL/m2 Anatomical Region Laterality Modality Heart Ultrasound Narrative 03/04/2023 10:55 AM EDT Normal LV size with mild LV dysfunction EF 45 to 50%. No obvious regional wall motion abnormality but the posterior wall looked a little more hypokinetic. Mild left atrial enlargement. Normal RV size and function. Normal diastolic function for age. Mild aortic insufficiency. No prior study for comparison. Left Ventricle The left ventricular cavity size and wall thickness are normal. The estimated ejection fraction is 45% (Normal 50-75%). The left ventricular ejection fraction was measured by visual estimate. Right Ventricle The right ventricular size is normal. TAPSE 3.01cm; RV S 13.5 The right ventricular systolic function is normal. Left Atrium The left atrium is normal in size. The LA volume index is 29.76 mL/m2 (normal indexed value is 16-34 mL/m2). Right Atrium The right atrium is normal in size. The IVC is normal in size (2.1cm or less). The IVC demonstrates normal collapse with inspiration which is consistent with normal RA pressure. Mitral Valve E/A 0.7; Lat E' 9.57cm/s; Med E' 5.55cm/s; E/E' 7.2 There is no evidence of mitral valve prolapse. There is trace mitral regurgitation detected by spectral and color Doppler. Tricuspid Valve There is evidence of trace tricuspid regurgitation by color and spectral Doppler. There is an insufficient tricuspid regurgitation Doppler profile to calculate a right ventricular systolic pressure. Aortic Valve The aortic valve is tricuspid. There is no evidence of valvular aortic stenosis. There is evidence of mild aortic regurgitation by color and spectral Doppler. The visualized portions of the thoracic aorta appear normal. Pulmonic Valve There is evidence of trace pulmonary regurgitation by color and spectral Doppler. Pericardium There is no evidence of pericardial effusion. General Findings The image quality was fair (3). Technique(s) used in the evaluation: Color flow Doppler and Spectral Doppler. The predominant rhythm during the study was sinus. Comparison Findings No prior studies for comparison. Margaux GARNER CV ECHO ORDERABLES Final Re sult documented in this encounter Visit Diagnoses Diagnosis Chronic ischemic heart disease, unspecified- Primary Chronic ischemic heart disease, unspecified documented in this encounter Additional Health Concerns Infection Onset Date Last Indicated Resolved Time CoV-Risk 08/05/2023 08/05/2023 08/05/2023 1:15 AM EST COVID-19 08/05/2023 08/05/2023 08/26/2023 1:23 AM EST documented as of this encounter Care Teams Smooth Stucco Resurfacer Relationship Specialty Start Date End Date [place] Weiss DO PCP - General Internal Medicine 07/11/17 documented as of this encounter Additional Source Comments The information contained in this document represents components of the legal health record. It is not the complete legal health record.[facility]
[2025-05-24 13:20] LABS: MANUAL DIFF FLAG NO
[2025-05-24 13:21] LABS: Appearance Urine Clear; Glucose Urine UA Negative (Negative); PH 5.5 (5.0-9.0); Specific Gravity - Urine 1.010 (1.005-1.025)
[2025-05-24 13:25] LABS: Hematocrit 43.1 % (42.0-52.0); Hemoglobin 14.6 g/dl (14.0-18.0); Imm Gran Abs Auto 0.02 X10*3/uL (0.00-0.03); Imm Gran Pct Auto 0.2 % (0.0-0.4); Lymphocytes Absolute Auto 3.1 X10*3/uL (1.2-4.9); Mean Corpuscular HGB Conc 33.9 g/dl (31.0-36.0); Mean Corpuscular Hemoglobin 32.6 pg (27.0-33.0); Mean Corpuscular Volume 96.2 fL (80.0-98.0); NRBC Abs Auto 0.000 X10*3/uL (0.0-0.012); NRBC Pct Auto 0.0 /100WBC (0.0-0.2); Platelet Count 218 X10*3/uL (160-400); Red Blood Count 4.48 X10*6/uL (4.60-5.80); White Blood Count 8.5 X10*3/uL (4.8-10.8)
[2025-05-24 13:41] LABS: Hemoglobin A1C 172.0022 umol/L; Total Hemoglobin (HGBA1C) 3693.3042 umol/L
[2025-05-24 13:55] LABS: Alanine Aminotransferase 37 U/L (0-40); Albumin Level 4.4 g/dL (3.5-5.0); Alkaline Phosphatase 51 U/L (39-117); Anion Gap 13 (12-20); Aspartate Amino Transferase 38 U/L (5-37); Blood Urea Nitrogen 18 mg/dL (9-16); Calcium 9.0 mg/dL (8.4-10.2); Carbon Dioxide 30 mmol/L (22-29); Chloride 105 mmol/L (96-108); Cholesterol 151 mg/dL (<200); Estimated Glomerular Filt Rate > 60; HDL Cholesterol 47 mg/dL (>40); Potassium 4.4 mmol/L (3.3-5.1); Sodium 144 mmol/L (135-145); Total Protein 6.5 g/dL (6.5-8.0); Triglycerides 126 mg/dL (<150)
[2025-05-24 14:26] LABS: Prostate Specific Antigen < 0.10 ng/mL (<0.05-4.0)
== END 2025-05-24 07:45 | disposition home or self-care (01) ==
LOC: HO.MANLDS 07:44
PROVIDERS: Visit Provider Internal Medicine
DX: Z12.5 Encounter for screening for malignant neoplasm of prostate (principal); I10 Essential (primary) hypertension; E78.00 Pure hypercholesterolemia, unspecified; R73.01 Impaired fasting glucose
CPT/HCPCS: 36415; 80053; 80061; 81003; 83036; 84153; 85025